=== PATIENT | male | born 1970 | race Caucasian/White ===

== ENCOUNTER 2018-12-13 09:52 | Observation (INO) | payer OTHER ==
[2018-12-13 10:25] LABS: INR 1.03 (0.82-1.09)
[2018-12-13 10:34] LABS: Hematocrit 45 % (42-52); Hemoglobin 15.3 g/dL (14.0-18.0); Mean Corpuscular HGB Conc 34 g/dL (31-36); Mean Corpuscular Hemoglobin 33 pg (27-31); Mean Corpuscular Volume 96 fL (80-94); Mean Platelet Volume 8.2 fL (7.4-10.4); Platelet Count 170 10^3/uL (150-450); Red Blood Count 4.68 10^6 /uL (4.18-5.48); Red Cell Distribution Width 13 % (10-15); White Blood Count 9.4 10^3/uL (3.5-10.8)
[2018-12-13 10:36] LABS: Albumin 4.7 g/dL (3.2-5.2); Albumin/Globulin Ratio 1.6 (1-3); BUN/Creatinine Ratio 15.3 (8-20); EGFR African American 116.4 (>60); EGFR Non-African American 96.2 (>60); Globulin 2.9 g/dL (2-4); Potassium 4.6 mmol/L (3.5-5.0); Total Bilirubin 1.3 mg/dL (0.2-1.0); Total Protein 7.6 g/dL (6.4-8.9)
[2018-12-13 12:03] LABS: ABS Eosinophils 0.1 10^3/ul (0-0.6); ABS Lymphocytes 1.6 10^3/ul (1.0-4.8); ABS Monocytes 0.6 10^3/ul (0-0.8); Eosinophil % 1.3 %; Lymphocyte % 17.3 %
[2018-12-13] MEDS ORDERED: Iohexol 350* (CONTRAST) 500 ML MDV IV ONE (12:08)
--- NOTE | 2018-12-13 12:15 | ED ---
HPI Chest Pain - HPI Summary HPI Summary: Pt is a 48 y/o M presenting to the ED with a chief complaint of L-sided chest wall pain initially onset on the night of 12/10/18 when he was going to sleep. He states he had surgery on December 01, and he experienced some calf cramping after that. He denies calf edema, cough, fever, nausea, diaphoresis, hx of blood clots, drug, or tobacco use. Deep breaths worsen the pain. - History of Current Complaint Chief Complaint: EDChestWallPain Time Seen by Provider: 12/13/18 12:02 Hx Obtained From: Patient Onset/Duration: Started Days Ago, Still Present Timing: Constant, Lasting Days Initial Severity: Mild Current Severity: Mild Pain Intensity: 3 Pain Scale Used: 0-10 Numeric Chest Pain Location: Left Lateral Chest Pain Radiates: No Aggravating Factor(s): Deep Breaths Alleviating Factor(s): Nothing Associated Signs and Symptoms: Positive: Chest Pain, Calf Pain/Swelling - calf cramping, no calf edema. Negative: Fever, Diaphoresis, Nausea, Cough - Allergy/Home Medications Allergies/Adverse Reactions: Allergies Allergy/AdvReac Type Severity Reaction Status Date / Time No Known Allergies Allergy Verified 12/13/18 09:56 Home Medications: Home Medications NK [No Home Medications Reported] 12/13/18 [History Confirmed 12/13/18] PMH/Surg Hx/FS Hx/Imm Hx Previously Healthy: Yes Endocrine/Hematology History: Denies: Hx Blood Disorders Cardiovascular History: Denies: Hx Hypertension Infectious Disease History: No Infectious Disease History: Denies: Traveled Outside the [place] in Last 30 Days - Family History Known Family History: Positive: Hypertension Negative: Cardiac Disease - Social History Alcohol Use: Daily Hx Substance Use: No Substance Use Type: Reports: None Hx Tobacco Use: No Smoking Status (MU): Never Smoked Tobacco Review of Systems Negative: Fever, Skin Diaphoresis Positive: Chest Pain Negative: Cough Negative: Nausea Positive: Myalgia - calf cramping. Negative: Edema All Other Systems Reviewed And Are Negative: Yes Physical Exam - Summary Physical Exam Summary: Constitutional: Well-developed, Well-nourished, Alert. (-) Distressed Skin: Warm, Dry HENT: Normocephalic; Atraumatic Eyes: Conjunctiva normal Neck: Musculoskeletal ROM normal neck. (-) JVD, (-) Stridor, (-) Tracheal deviation Cardio: Rhythm regular, rate normal, Heart sounds normal; Intact distal pulses; The pedal pulses are 2+ and symmetric. Radial pulses are 2+ and symmetric. (-) Murmur Pulmonary/Chest wall: Effort normal. (-) Respiratory distress, (-) Wheezes, (-) Rales Abd: Soft, (-) tenderness, (-) Distension, (-) Guarding, (-) Rebound Musculoskeletal: (-) Edema, no venous cords, no calf tenderness elicited Lymph: (-) Cervical adenopathy Neuro: Alert, Oriented x3 Psych: Mood and affect Normal Triage Information Reviewed: Yes Vital Signs On Initial Exam: Initial Vitals Temp Pulse Resp BP Pulse Ox 97.6 F 77 18 131/98 96 12/13/18 09:53 12/13/18 09:53 12/13/18 09:53 12/13/18 09:53 12/13/18 09:53 Vital Signs Reviewed: Yes Diagnostics - Vital Signs Vital Signs Temp Pulse Resp BP Pulse Ox 12/13/18 11:44 97.6 F 74 18 148/90 95 12/13/18 09:53 97.6 F 77 18 131/98 96 - Laboratory Lab Results: Lab Results 12/13/18 12/13/18 12/13/18 Range/Units 10:05 10:05 10:05 WBC 9.4 (3.5-10.8) 10^3/uL RBC 4.68 (4.18-5.48) 10^6 /uL Hgb 15.3 (14.0-18.0) g/dL Hct 45 (42-52) % MCV 96 H (80-94) fL MCH 33 H (27-31) pg MCHC 34 (31-36) g/dL RDW 13 (10-15) % Plt Count 170 (150-450) 10^3/uL MPV 8.2 (7.4-10.4) fL Neut % (Auto) 74.6 % Lymph % (Auto) 17.3 % Cherry % (Auto) 6.6 % Eos % (Auto) 1.3 % Baso % (Auto) 0.2 % Absolute Neuts (auto) 7.0 (1.5-7.7) 10^3/ul Absolute Lymphs (auto) 1.6 (1.0-4.8) 10^3/ul Absolute Monos (auto) 0.6 (0-0.8) 10^3/ul Absolute Eos (auto) 0.1 (0-0.6) 10^3/ul Absolute Basos (auto) 0.0 (0-0.2) 10^3/ul Absolute Nucleated RBC 0.0 10^3/ul Nucleated RBC % 0.0 INR (Anticoag Therapy) 1.03 (0.82-1.09) D-Dimer, Quantitative > 1050 H (Less Than 230) ng/mL Sodium 139 (135-145) mmol/L Potassium 4.6 (3.5-5.0) mmol/L Chloride 102 (101-111) mmol/L Carbon Dioxide 31 (22-32) mmol/L Anion Gap 6 (2-11) mmol/L BUN 13 (6-24) mg/dL Creatinine 0.85 (0.67-1.17) mg/dL Est GFR ( Amer) 116.4 (>60) Est GFR (Non-Af Amer) 96.2 (>60) BUN/Creatinine Ratio 15.3 (8-20) Glucose 103 H (70-100) mg/dL Calcium 10.0 (8.6-10.3) mg/dL Total Bilirubin 1.30 H (0.2-1.0) mg/dL AST 17 (13-39) U/L ALT 19 (7-52) U/L Alkaline Phosphatase 87 (34-104) U/L Troponin I 0.00 (<0.04) ng/mL Total Protein 7.6 (6.4-8.9) g/dL Albumin 4.7 (3.2-5.2) g/dL Globulin 2.9 (2-4) g/dL Albumin/Globulin Ratio 1.6 (1-3) Result Diagrams: 12/13/18 10:05 12/13/18 10:05 Lab Statement: Any lab studies that have been ordered have been reviewed, and results considered in the medical decision making process. - CT CTA chest/thorax CT Interpretation Completed By: Radiologist Summary of CT Findings: BILATERAL PULMONARY EMBOLI EXTENDING FROM THE MAIN PULMONARY ARTERIES TO THE SEGMENTAL BRANCHES. ED physician has reviewed this report. - EKG 0958 Cardiac Rate: NL - 75bpm EKG Rhythm: Sinus Rhythm ST Segment: Non-Specific Ectopy: None Summary of EKG Findings: EKG at 0958 shows NSR at 75bpm with a prominent S wave in lead I, and T-wave inversion in lead III and aVF. Chest Pain Course/Dx - Course Course Of Treatment: Symptoms in with chest pain to rule out PE. Patient elevated d-dimer and a CT was performed which showed bilateral pleuritic embolus. Patient was normal cardiac, normotensive, not hypoxic, had a normal troponin. Patient had no evidence of submassive or massive PE so he was treated with Lovenox. Patient is admitted to medicine for further management - Diagnoses Provider Diagnoses: Left-sided chest pain, Pulmonary embolism - Provider Notifications Discussed Care Of Patient With: Geovanna Shields Time Discussed With Above Provider: 12:57 Discharge - Sign-Out/Discharge Documenting (check all that apply): Patient Departure - Discharge Plan Condition: Stable Disposition: ADMITTED TO [facility] Referrals: Saran Campbell MD [Primary Care Provider] - - Billing Disposition and Condition Condition: STABLE Disposition: Admitted to [facility] - Attestation Statements Document Initiated by Scribe: Yes Documenting Scribe: Maricruz Weber Provider For Whom Scribe is Documenting (Include Credential): David Gallegos MD. Scribe Attestation: Maricruz Groves, hirened for David Gallegos MD. on 12/13/18 at 1453. Scribe Documentation Reviewed: Yes Provider Attestation: The documentation as recorded by the Maricruz cage accurately reflects the service I personally performed and the decisions made by , David Gallegos MD. Status of Scribe Document: Viewed Consult Consult: [id number] - I spoke with Dr. Shields who will be coming to evaluate the patient for admission.
[2018-12-13] MEDS ORDERED: Enoxaparin(*) 100 MG/ML SYR SUBCUT ONE (12:51)
[2018-12-13] MEDS ORDERED: Ondansetron INJ* 2 MG/ML VIAL IV PRN (14:34)
--- NOTE | 2018-12-13 16:27 | HP ---
History of Present Illness - History of Present Illness Reason for Visit: Left sided chest pain History of Present Illness: This is a 48 y/o M, otherwise healthy presented with complain of: 1. left sided chest pain for 3 days(wednesday)- sudden, on and off, positional( increased by lying down and relived on standing); non-exertional; nonradiating, 8 on 10 and pleuritic(increased on deep breath). No fever, palpitation or difficulty in breathing. 2. Right calf cramping for 1 week- on and off. No swelling, redness or severe pain. History of RIght knee surgery for meniscal repair on 12/01/2018. Taking hydrocodone once daily. 3. Recent travel to [place] on November 21 to with 7 hr flight. ROS: No any cough, headache, weakness, abdominal pain, nausea, vomiting, sense of impending doom, joint pain, rash. Normal bowel and bladder habit. - Past Medical History Past Medical History: No any pertinent past medical history - Past Surgical History Past Surgical History: 1. Right knee meniscal repair on 12/01/2018 2. Eye surgery on November 18. - Past Family History Past Family History: History of HTN on his father. No significant history on mother and his sibling. No family history of thromboembolism. - Past Social History Past Social History: Drinks alcohol- 2 drinks of whiskey everyday for last 3-4 years. No smoking and use of other recreational drug. Review of Systems - Review of Systems Cardiovascular: Positive: Chest Pain Musculoskeletal: Positive: Leg Pain - Medications/Allergies Allergies/Adverse Reactions: Allergies Allergy/AdvReac Type Severity Reaction Status Date / Time No Known Allergies Allergy Verified 12/13/18 09:56 Medications: Current Medications Acetaminophen (Tylenol Tab*) 650 mg PO Q4H PRN PRN Reason: PAIN - MILD Ondansetron HCl (Zofran Inj*) 4 mg IV Q4H PRN PRN Reason: NAUSEA/VOMITING Exam Vital Signs: Vital Signs (72 hours) 12/13/18 12/13/18 12/13/18 09:53 11:44 12:04 Temperature 97.6 F 97.6 F Pulse Rate 77 74 85 Respiratory 18 18 Rate Blood Pressure 131/98 148/90 148/86 (mmHg) O2 Sat by Pulse 96 95 97 Oximetry 12/13/18 12/13/18 12/13/18 12:34 13:00 13:05 Temperature Pulse Rate 85 86 84 Respiratory 18 16 16 Rate Blood Pressure 147/91 130/104 (mmHg) O2 Sat by Pulse 97 95 94 Oximetry 12/13/18 12/13/18 12/13/18 13:34 14:06 14:52 Temperature Pulse Rate 80 117 Respiratory 21 21 Rate Blood Pressure 139/105 137/101 (mmHg) O2 Sat by Pulse 94 79 Oximetry 12/13/18 12/13/18 12/13/18 15:00 15:04 15:34 Temperature Pulse Rate Respiratory 20 17 18 Rate Blood Pressure 133/89 133/89 (mmHg) O2 Sat by Pulse Oximetry 12/13/18 12/13/18 16:00 16:04 Temperature Pulse Rate 72 74 Respiratory 19 19 Rate Blood Pressure 142/86 (mmHg) O2 Sat by Pulse 93 94 Oximetry Exam: Patient is sitting on a bed with no any acute distress. Looks well-nourished. HEENT: Normocepahlic, Atraumatic, Eyes PERRLA. Ear, nose and throat normal Lungs: Normal vesicular breath sound heard all over the lung field. Heart: Normal in rate and rhythm, S1/S2 heard with no any murmur. Abdomen: Soft, nondistended and nontender. Normal bowel sound heard Extremities: Suture in situ on right knee. No any swelling, redness or tenderness. Hnana's sign and Oliverio sign are negative Neuro: Alert, conscious and oriented. CN intact, Moving all four extremities. Assessment/Plan - Assessment/Plan Assessment: 48 y/o M otherwise healthy, with history of recent travel and surgery presented with Left sided pleuritic chest pain for 3 days and hx of right calf cramping for 1 week. Found to have Bilateral pulmonary embolism on CTA with elevated D- dimer. Started on Enoxaparin. EKG shows nonspecific T wave changes on lead III, Troponin negative(2 times). Plan: 1. Switch him to Rivaroxaban 15 mg BID for 21 days. 2. Obtain lower extremity venous doppler to r/o any DVT. 3. Repeat EKG on morning given nonspecific T-wave changes on present EKG.(Also to have a baseline) 4. Er Nurse about his daily alcohol drinking habit. 5. Er Nurse for lifestyle modification given his obesity. Attestation Documenting Resident: Robin Supervising Physician: Jusitn Attending/Supervising Physician Comment: 48 yo M previously healthy with no known PMHx developed subacute chest discomfort and [facility] after recent travel and right knee surgery. On presentation to ED was found with b/l submassive pulmonary embolisms in the absence of hemodynamic instability, hypoxia, tachycardia, elevated troponin and +normal limit BNP. He was started on lovenox for PE in ED which we will change to xarelto tomorrow DVT to assess clot burden. No e/o hemodynamic instability or other diagnostic reason to check TTE which will not influence our management. He did have non specific t wave changes which we will check repeat EKG in AM If stable in AM will be candidate for discharge sPESI score = 0 Attestation: This service has been performed in part by a resident under the direction of a teaching physician.Justin Groves, performed the service, or was physically present during the critical, or [place] portions of the service, furnished by the resident. I participated in the management of the patient.
[2018-12-13] MEDS: Rivaroxaban TAB(*) 15 MG PO SCH (22:37)
[2018-12-13] MEDS: Acetaminophen TAB* 325 MG PO PRN (22:47)
[2018-12-14] MEDS: Rivaroxaban TAB(*) 15 MG PO SCH (08:20)
[2018-12-14] MEDS: Acetaminophen TAB* 325 MG PO PRN (08:22)
[2018-12-14] MEDS ORDERED: traMADol TAB* 50 MG PO ONE (10:35)
[2018-12-14] MEDS ORDERED: predniSONE TAB* 20 MG PO ONE (10:35)
[2018-12-14 11:42] VITALS: BP 127/80
--- NOTE | 2018-12-14 16:44 | DS ---
CC: Dr. Campbell * DATE OF ADMISSION: 12/13/2018. DATE OF DISCHARGE: 12/14/2018. PRIMARY CARE PHYSICIAN: Dr. Campbell. DISPOSITION: To home. CONDITION ON DISCHARGE: Improved. PRIMARY DIAGNOSIS: Bilateral pulmonary embolism associated with right lower extremity deep venous thrombosis. SECONDARY DIAGNOSIS: Chest pain. MEDICATIONS ON DISCHARGE: 1. Rivaroxaban 15 mg twice daily for 20 additional days, after which he will start Rivaroxaban 20 mg daily to take with food. 2. Acetaminophen 650 mg every 4 hours as needed for pain. 3. Tramadol 50 mg every 6 hours, I dispensed 12 tabs. 4. Prednisone 20 mg daily for 4 days. PERTINENT LABORATORY DATA: Troponin I 0.00, BNP 37. PERTINENT IMAGING DATA: 1. CTA chest and thorax: Impression: Bilateral pulmonary emboli extending from the main pulmonary arteries to the segmental branches. 2. Venous Doppler study bilateral lower extremities positive for right lower extremity DVT. Nonocclusive mobile thrombus in the right vein, occlusive thrombosis in one of the paired right posterior tibial veins, and nonocclusive thrombus in one of the paired right peroneal veins. No left lower extremity DVT. HISTORY OF PRESENT ILLNESS AND HOSPITAL COURSE: This 48-year-old male, no known past medical history, was in his usual state of health and developed subacute onset dyspnea on exertion associated with pleuritic chest pain. He presented to the hospital and was found with bilateral pulmonary emboli as indicated above. This was provoked in the setting of recent right knee meniscus repair as well as travel. He was also found to have a right lower extremity DVT lending evidence to surgery as inciting event. He was hemodynamically stable. He had a simplified PESI score of 0. He was started on Lovenox and transitioned to Xarelto. His hospital stay was notable for intense pain when lying flat, much improved when sitting up. This was not relieved with Tylenol. For this, he was prescribed a short course of Tramadol. There was a pleuritic nature to this chest pain and it was thought prudent to avoid nonsteroidal anti-inflammatories in the setting of newly introduced Xarelto. For this reason, he was started on a short course of Prednisone to hopefully alleviate some of the inflammation knowing that this may not be of benefit and the pain may persist until resolution of the thrombus and/or healing of any damage to lungs. Reasons to return to the hospital were discussed at length with the patient and his and they include recurrent or worsening symptoms, including worsening chest pain, shortness of breath, lightheadedness, loss of consciousness or near loss of consciousness, bleeding from any source including dark black stool. AT FOLLOW-UP, PLEASE: 1. Evaluate for improved symptomatology as well as pain. 2. No other specific labs or vitals that need follow-up. TIME SPENT: Greater than 60 minutes were spent on discharge of this patient, greater than half was spent [id number] with the patient. [id number]/[facility] [place] #: [id number] [facility]PITALHugh
== END 2018-12-14 12:44 | disposition home or self-care (01) ==
LOC: ED 09:52 → MEDTELE 14:34
PROVIDERS: ADMIT Internal Medicine; ATTEND Internal Medicine
DX: I26.99 Other pulmonary embolism without acute cor pulmonale (principal); I82.4Z1 Acute embolism and thrombosis of unspecified deep veins of right distal lower extremity; R07.9 Chest pain, unspecified; Z79.899 Other long term (current) drug therapy; R94.31 Abnormal electrocardiogram [ECG] [EKG]
CPT/HCPCS: 36415; 71275; 80053; 83880; 84484; 85025; 85379; 85610; 93005; 93970; 96372; 99284; A9270-GY; G0378; J1650; J7512; Q9967

== ENCOUNTER 2018-12-15 14:12 | Emergency (ER) | payer OTHER ==
[2018-12-15 14:48] LABS: ABS Lymphocytes 1.1 10^3/ul (1.0-4.8); ABS Monocytes 0.5 10^3/ul (0-0.8); ABS Neutrophils 11.5 10^3/ul (1.5-7.7); Eosinophil % 0.2 %; Hematocrit 42 % (42-52); Hemoglobin 14.4 g/dL (14.0-18.0); Mean Corpuscular HGB Conc 35 g/dL (31-36); Mean Corpuscular Hemoglobin 33 pg (27-31); Mean Corpuscular Volume 96 fL (80-94); Nucleated Red Blood Cells % 0.1; Platelet Count 211 10^3/uL (150-450); Red Blood Count 4.34 10^6 /uL (4.18-5.48); Red Cell Distribution Width 13 % (10-15); White Blood Count 13.2 10^3/uL (3.5-10.8)
--- NOTE | 2018-12-15 14:50 | ED ---
HPI Chest Pain - HPI Summary HPI Summary: 48 year old M presenting to [facility] accompanied by parents complains of right- sided chest pain radiating to his right shoulder since this morning. The patient rates the pain 7/10 in severity. Symptoms aggravated by sitting up and lying down. Symptoms alleviated by nothing. Patient states the chest pain started on the left side 5 days ago and has now progressed to the right side. Patient states pain does not worsen with movement. Patient denies shortness of breath. Patient recently traveled and had procedure done on his right knee. Patient was diagnosed with bilateral pulmonary embolisms 2 days ago. Patient was instructed to go to ED if his pain worsened. Patient started taking Xarelto yesterday. - History of Current Complaint Chief Complaint: EDChestWallPain Time Seen by Provider: 12/15/18 14:41 Hx Obtained From: Patient Onset/Duration: Started Hours Ago, Still Present Timing: Constant Current Severity: Moderate Pain Intensity: 7 Pain Scale Used: 0-10 Numeric Chest Pain Radiates: Yes Chest Pain Radiates To:: Shoulder - right Aggravating Factor(s): Other: - sitting up and lying down Alleviating Factor(s): Nothing Associated Signs and Symptoms: Negative: Shortness of Breath - Additional Pertinent History Primary Care Physician: [id number] - Allergy/Home Medications Allergies/Adverse Reactions: Allergies Allergy/AdvReac Type Severity Reaction Status Date / Time No Known Allergies Allergy Verified 12/13/18 09:56 PMH/Surg Hx/FS Hx/Imm Hx Endocrine/Hematology History: Denies: Hx Blood Disorders Cardiovascular History: Denies: Hx Hypertension Respiratory History: Reports: Hx Asthma - exercise induced GI History: Reports: Hx Diverticulosis - 15 years ago Sensory History: Reports: Hx Contacts or Glasses - glasses Denies: Hx Hearing Aid Opthamlomology History: Reports: Hx Contacts or Glasses - glasses - Surgical History Surgery Procedure, Year, and Place: December 01 miniscus right knee. November 18 lasic eye surgery. Vasectomy Hx Anesthesia Reactions: No Infectious Disease History: No Infectious Disease History: Denies: Traveled Outside the [place] in Last 30 Days - Family History Known Family History: Positive: Hypertension Negative: Cardiac Disease - Social History Alcohol Use: Daily Alcohol Amount: 2 glasses of [place] Hx Substance Use: No Substance Use Type: Reports: None Hx Tobacco Use: No Smoking Status (MU): Never Smoked Tobacco Review of Systems Positive: Chest Pain Negative: Shortness Of Breath All Other Systems Reviewed And Are Negative: Yes Physical Exam - Summary Physical Exam Summary: VITAL SIGNS: Reviewed. GENERAL: Patient is a well-developed and nourished MALE who is lying comfortable in the stretcher. Patient is not in any acute respiratory distress. HEAD AND FACE: No signs of trauma. No ecchymosis, hematomas or skull depressions. No sinus tenderness. EYES: PERRLA, EOMI x 2, No injected conjunctiva, no nystagmus. EARS: Hearing grossly intact. Ear canals and tympanic membranes are within normal limits. MOUTH: Oropharynx within normal limits. NECK: Supple, trachea is midline, no adenopathy, no JVD, no carotid bruit, no c- spine tenderness, neck with full ROM. CHEST: Symmetric, no tenderness at palpation. LUNGS: Clear to auscultation bilaterally. No wheezing or crackles. CVS: Regular rate and rhythm, S1 and S2 present, no murmurs or gallops appreciated. ABDOMEN: Soft, non-tender. No signs of distention. No rebound, no guarding, and no masses palpated. Bowel sounds are normal. EXTREMITIES: FROM in all major joints, no edema, no cyanosis or clubbing. NEURO: Alert and oriented x 3. No acute neurological deficits. Speech is normal and follows commands. SKIN: Dry and warm. Triage Information Reviewed: Yes Vital Signs On Initial Exam: Initial Vitals Temp Pulse Resp BP Pulse Ox 97.7 F 82 18 156/80 95 12/15/18 14:22 12/15/18 14:22 12/15/18 14:22 12/15/18 14:22 12/15/18 14:22 Vital Signs Reviewed: Yes Diagnostics - Vital Signs Vital Signs Temp Pulse Resp BP Pulse Ox 12/15/18 14:22 97.7 F 82 18 156/80 95 - Laboratory Result Diagrams: 12/15/18 14:39 12/15/18 14:39 Lab Statement: Any lab studies that have been ordered have been reviewed, and results considered in the medical decision making process. - EKG 1415 Cardiac Rate: NL - 81 BPM EKG Rhythm: Sinus Rhythm EKG Comparison: No Significant Change - similar to prevous 12/13/18 Summary of EKG Findings: sinus rhythm [address] elevations. similar to previous EKG done on 12/13/18 Chest Pain Course/Dx - Course Assessment/Plan: 48 year old M presenting to [facility] accompanied by parents complains of right-sided chest pain radiating to his right shoulder since this morning. The patient rates the pain 7/10 in severity. Symptoms aggravated by sitting up and lying down. Symptoms alleviated by nothing. Patient states the chest pain started on the left side 5 days ago and has now progressed to the right side. Patient states pain does not worsen with movement. Patient denies shortness of breath. Patient recently traveled and had procedures done on his right knee. Patient was diagnosed with bilateral pulmonary embolisms 2 days ago. Patient was instructed to go to ED if his pain worsened. Patient started taking Xarelto yesterday. Blood work without any significant abnormality except the WBCs of 13.2, glucose of 158, and troponin 0.00. I discussed the case with and Dr. Seals from oncology and he reports that the chest pain the patient is experiencing is typical after a PE. He said that the patient would have pleuritic chest pain. The patient is awaiting treatment for a PE therefore he recommends for the patient to be discharged home with follow-up with the primary care physician. In the ED course the patient was given [place] for the pain and his symptoms improved. At this time I discussed my findings and test results with the patient is to follow-up with PCP. The patient understands and agrees. - Diagnoses Provider Diagnoses: Chest pain, Pulmonary embolism - Provider Notifications Discussed Care Of Patient With: Winston Seals Time Discussed With Above Provider: 15:02 Instructed by Provider To: Other - Dr. Seals, oncology, states it is very common to have pleuritic cest pain with PE. Dr. Seals recommends giving pain medication , doing bloodwork, and if everything is normal, then discharge patient home with instructions to continue taking Xarelto and pain medication. Discharge - Sign-Out/Discharge Documenting (check all that apply): Patient Departure - Discharge Patient Received Moderate/Deep Sedation with Procedure: No - Discharge Plan Condition: Stable Disposition: HOME Prescriptions: Hydrocodone/Acetaminophen [[place] 5-325 Tablet] 1 each PO Q6HR PRN #10 tablet MDD 4 tabs PRN Reason: Pain - Mild Patient Education Materials: Chest Pain (ED), Pulmonary Embolism (ED) Referrals: Saran Campbell MD [Primary Care Provider] - 3 Days Additional Instructions: Follow up with your primary care provider in 3 days. Return to the Emergency Department for new or worsening symptoms. - Billing Disposition and Condition Condition: STABLE Disposition: Home - Attestation Statements Document Initiated by Cesar: Yes Documenting Scribe: Trish Hunter Provider For Whom Cesar is Documenting (Include Credential): Satnam Parikh MD Scribe Attestation: ITrish, scribed for Satnam Parikh MD on 12/15/18 at 1838. Scribe Documentation Reviewed: Yes Provider Attestation: The documentation as recorded by the Trish cage accurately reflects the service I personally performed and the decisions made by me, Satnam Parikh MD Status of Scribe Document: Viewed
[2018-12-15 14:53] LABS: INR 1.62 (0.82-1.09)
[2018-12-15] MEDS ORDERED: oxyCODONE/Acetamin 5/325 MG* TAB PO ONE (15:03)
[2018-12-15 15:16] LABS: Albumin 4.4 g/dL (3.2-5.2); Albumin/Globulin Ratio 1.4 (1-3); BUN/Creatinine Ratio 22.6 (8-20); Calcium 9.7 mg/dL (8.6-10.3); EGFR Non-African American 97.5 (>60); Globulin 3.1 g/dL (2-4); Potassium 4.3 mmol/L (3.5-5.0); Total Bilirubin 0.9 mg/dL (0.2-1.0); Total Protein 7.5 g/dL (6.4-8.9)
--- OUTSIDE RECORDS SUMMARY | 2018-12-15 15:27 | XMS REPORT | Summary of Care ---
:1970 Author Organization [facility] Address [address] [facility] [place] [address] Care Team Providers Name Role Phone Saran Campbell MD Primary Care Provider Reason for Visit Reason Comments Rib Pain Pt c/o left lateral rib pain x3 days. 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 Apply externally Gel Multiple Take by mouth. 0 Active Vitamins-Minerals (MULTIVITAMIN MEN PO) CREATINE PO Take by mouth. 0 Active albuterol HFA Take 2 Puffs by 1 Inhaler 3 05/13/2018 Active (VENTOLIN HFA) 108 inhalation EVERY (90 Base) MCG/ACT FOUR HOURS Inhalation Aero Soln NEEDED (exercise asthma symptoms). HYDROcodone-acetamino Take 1-2 Tabs by 16 Tab 0 11/28/2018 Active phen (NORCO) 5-325 MG mouth EVERY SIX Oral Tab HOURS NEEDED (pain). Max Daily Amount: 8 Tabs. HYDROcodone-acetamino Take 1 Tab by mouth 7 Tab 0 12/08/2018 Active phen (NORCO) 5-325 MG EVERY BEDTIME. Max Oral Tab Daily Amount: 1 Tab. documented as of this encounter (statuses as of 12/13/2018) Active Problems Problem Noted Date Current tear of lateral cartilage or meniscus of knee 11/28/2018 History of diverticulitis of colon 01/20/2010 Overview: Hospitalized 1990s documented as of this encounter (statuses as of 12/13/2018) Immunizations Name Administration Dates Next Due Hep A / Hep B Combined Vaccine (Adult) 01/24/2018, 12/20/2017 Influenza (IM) Preservative Free 01/24/2018, 01/13/2017 documented as of this encounter Social History Tobacco Use Types Packs/Day Years Used Date Never Smoker Smokeless Tobacco: Never Used Alcohol Use Drinks/Week oz/Week Comments Yes 3 Standard drinks or equivalent 3.0 Sex Assigned at Date Recorded Not on file Job Start Date Occupation Industry Not on file Not on file Not on file Travel History Travel Start Travel End No recent travel history available. documented as of this encounter Last Filed Vital Signs Vital Sign Reading Time Taken Comments Blood Pressure 122/80 12/13/2018 8:10 AM EDT Pulse 77 12/13/2018 8:42 AM EDT Temperature - - Respiratory Rate - - Oxygen Saturation 95% 12/13/2018 8:42 AM EDT Inhaled Oxygen Concentration - - Weight 95.7 kg (211 lb) 12/13/2018 8:10 AM EDT Height 175.3 cm (5' 9") 12/13/2018 8:10 AM EDT Body Mass Index 31.16 12/13/2018 8:10 AM EDT documented in this encounter Patient Instructions Patient InstructionsCecilia Regan NP - 12/13/2018 8:00 AM EDT I am concerned you may have a pulmonary embolism due to your recent surgery and travel, along with your chest pain. Please go to the ER to be evaluated for this. Your EKG was normal. Pulmonary Embolism WHAT YOU NEED TO KNOW: What is a pulmonary embolism? A pulmonary embolism (PE) is the sudden blockage of a blood vessel inthe lungs by an embolus. An embolus is a small piece of blood clot, fat, air, or tumor cells. The embolus cuts off the blood supply to your lungs. A pulmonary embolism can become life-threatening. What increases my risk for a PE? Obesity Smoking control pills Certain blood diseases, such as thrombophilia and hyperhomocysteinemia Medical conditions, such as a deep venous thrombosis (DVT) or cancer and childbirth Recent surgery Sitting or lying in one position for a long time, such as when you travel by plane What are the signs and symptoms of a PE? Sudden shortness of breath or fast breathing Sudden chest pain that is worse when you take a deep breath Fast heartbeat Fever and coughing up blood Bluish nails Cold, pale, clammy skin Fainting How is a PE diagnosed? Ask your healthcare provider about these and other tests you may need: Blood tests may show signs of the PE or how well your organs are working. An EKG test records your heart rhythm and how fast your heart beats. It is used to check for abnormal heart function. A chest x-ray may show signs of a lung infection or other damage. A CT scan may show the PE. You may be given contrast liquid to help your lungs show up better in the pictures. Tell the healthcare provider if you have ever had an allergic reaction to contrast liquid. A lung scan , or V/Q scan, may show how well blood and oxygen flow in your lungs. A small amount of contrast liquid is used to study your airflow (V) and blood flow (Q). First, you breathe in medical gas. Then, contrast liquid is injected into a vein. Pictures are taken to see how well your lungstake in oxygen. How is a PE treated? Medicines: Clot busters are emergency medicines that work to dissolve blood clots. They cannot be used during or in people with medical conditions that increase their risk of bleeding. Blood thinners help treat the PE and prevent new clots from forming. Examples of blood thinners include heparin, rivaroxaban, apixiban, and warfarin. The following are general safety guidelines to follow while you are taking a blood thinner: Watch for bleeding and bruising. Watch for bleeding from your gums or nose. Watch for blood in your urine and bowel movements. Use a soft washcloth on your skin, and a soft toothbrush to brush your teeth. This can keep your skin and gums from bleeding. If you shave, use an electric shaver. Do notplay contact sports. Tell your dentist and other healthcare providers that you take a blood thinner. Wear a braceletor necklace that says you take this medicine. Do not start or stop any medicines unless your healthcare provider tells you to. Many medicinescannot be used with blood thinners. Tell your healthcare provider right away if you forget to take the blood thinner , or if you take too much. Warfarin is a blood thinner that you may need to take. The following are additional things youshould be aware of if you take warfarin: Foods and medicines can affect the amount of warfarin in your blood. Do not make major changes to your diet. Warfarin works best when you eat about the same amount of vitamin K every day. Vitamin K is found in green leafy vegetables and certain other foods. Ask for more information about what to eat or not to eat. You will need to see your healthcare provider for follow-up visits. You will need regular bloodtests to decide how much warfarin you need. A vena cava filter may be placed inside your vena cava to prevent another PE. The vena cava gerry large vein that brings blood from your lower body up to your heart. The filter traps blood clots and prevents them from going into your lungs. Surgery , called a thrombectomy, may be done to remove the PE. A procedure called thrombolysis may instead be done to inject a clot buster that helps break the clot apart. How can I decrease my risk for another PE? Wear pressure stockings. The stockings are tight and put pressure on your legs. This improves blood flow and helps prevent clots. Wear the stockings during the day. Do not wear them when you sleep. Exercise regularly. Ask about the best exercise plan for you. When you travel by car or work at a desk, take breaks to stand up and move around as much as possible. Rotate your feet in circles often if you sit for a long period of time. Maintain a healthy weight. Ask your healthcare provider how much you should weigh. Ask him to help you create a weight loss plan if you are overweight. Do not smoke. Nicotine and other chemicals in cigarettes and cigars can damage blood vessels and increase your risk for another PE. Ask your healthcare provider for information if you currently smoke and need help to quit. E- cigarettes or smokeless tobacco still contain nicotine. Talk to your healthcare provider before you use these products. Call 911 for any of the following: You feel lightheaded, short of breath, and have chest pain. You cough up blood. You have a seizure. You have slurred speech, increased sleepiness, or problems seeing, talking , or thinking. You have weakness or cannot move your arm or leg on one side of your body. When should I seek immediate care? You feel faint. You have a severe headache. Your heart is beating faster than normal. When should I contact my healthcare provider? The skin on any part of your legs or hips turns purple. Your gums or nose bleed. You see blood in your urine or bowel movements. Your bowel movements are black or darker than normal. You have questions or concerns about your condition or care. CARE AGREEMENT: You have the right to help plan your care. Learn about your health condition and how it may be treated. Discuss treatment options with your caregivers to decide what care you want to receive. You always have the right to refuse treatment. The above information is an parent aide only. It is not intended as medical advice for individual conditions or treatments. Talk to your doctor, nurse or pharmacist before following any medical regimen to see if it is safe and effective for you. 2016 [employer]. Information is for End User's use only and may not be sold, redistributed or otherwise used for commercial purposes. All illustrations and images included in CareNotes are the copyrighted property of [employer] or [employer]. documented in this encounter Progress Notes Cecilia Regan NP - 12/13/2018 8:00 AM EDT PATIENT: Orlin Marie : 1970 DATE OF SERVICE: 12/13/2018 CHIEF COMPLAINT: Chief Complaint Patient presents with Rib Pain Pt c/o left lateral rib pain x3 days. Subjective HISTORY OF PRESENT ILLNESS: Orlin Marie is a 48-y.o. male. Patient with pain in his left rib cage "like a runners stitch that does not go away", started Wednesday night after dinner, noticed when he went to bed and lay down, felt like gas but has not passed. There is one spot of pain he is able to point to, it does not radiate - No pain in arm, back, shoulders, neck or jaw. Standing upright makes pain better, worse when laying down. Movement and coughing does not exacerbate the pain but painful with deep breath. Denies SOB , palpitations, lightheadedness,dizziness. He had surgery on his right knee December 01. 2 weeks before that he had eye surgery. He has also been traveling back and forth to [facility] frequently, last was on 11/25/18. He has had cramps in his right calf since surgery on 12/01, but no swelling that he has noted. History reviewed. No pertinent past medical history. Family History Problem Relation Age of Onset Hypertension Father Diabetes Maternal Grandmother Anesth Problems No family history Arthritis No family history Cancer No family history Clotting Disorder No family history Heart Disease No family history Kidney Disease No family history Thyroid Disease No family history Current Outpatient Medications Medication Sig albuterol HFA (VENTOLIN HFA) 108 (90 Base) MCG/ACT Inhalation Aero Soln Take 2 Puffs by inhalation EVERY FOUR HOURS NEEDED (exercise asthma symptoms ). Clindamycin Phos-Benzoyl Perox (BENZACLIN) 1-5 % Apply externally Gel 1 Appl by Apply externally route EVERY BEDTIME. CREATINE PO Take by mouth. HYDROcodone-acetaminophen (NORCO) 5-325 MG Oral Tab Take 1-2 Tabs by mouth EVERY SIX HOURS ASNEEDED (pain). Max Daily Amount: 8 Tabs. HYDROcodone-acetaminophen (NORCO) 5-325 MG Oral Tab Take 1 Tab by mouth EVERY BEDTIME. Max Daily Amount: 1 Tab. Multiple Vitamins-Minerals (MULTIVITAMIN MEN PO) Take by mouth. No current facility-administered medications for this visit. Allergies Allergen Reactions Adhesive [Tape: Silk Or Adhesive] Rash Social History Socioeconomic History Marital status: Single Spouse name: Not on file Number of children: Not on file Years of education: Not on file Highest education level: Not on file Occupational History Not on file Social Needs Financial resource strain: Not on file Food insecurity: Worry: Not on file Inability: Not on file Transportation needs: Medical: Not on file Non-medical: Not on file Tobacco Use Smoking status: Never Smoker Smokeless tobacco: Never Used Substance and Sexual Activity Alcohol use: Yes Alcohol/week: 3.0 standard drinks Types: 3 Standard drinks or equivalent per week Drug use: No Sexual activity: Not Currently Partners: Male Lifestyle Physical activity: Days per week: Not on file Minutes per session: Not on file Stress: Not on file Relationships Social connections: Talks on phone: Not on file Gets together: Not on file Attends quaker service: Not on file Active member of club or organization: Not on file Attends meetings of clubs or organizations: Not on file Relationship status: Not on file Intimate partner violence: Fear of current or ex partner: Not on file Emotionally abused: Not on file Physically abused: Not on file Forced sexual activity: Not on file Other Topics Concern Back Care Not Asked Bike Helmet Not Asked Blood Transfusions Not Asked Caffeine Concern No Exercise Yes Comment: running and wt lifting Hobby Hazards Not Asked International Travel Not Asked Service Not Asked Occupational Exposure Not Asked Seat Belt Not Asked Self-Exams Not Asked Sleep Concern Not Asked Special Diet No Stress Concern Not Asked Weight Concern Not Asked Social History 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 Respiratory: Negative for cough, hemoptysis and shortness of breath. Pleuritic chest pain left side Cardiovascular: Positive for chest pain (Left side ribs). Negative for palpitations, orthopnea and leg swelling. Cramping in right calf Gastrointestinal: Negative for abdominal pain, nausea and vomiting. Musculoskeletal: Positive for myalgias (right calf cramps). Negative for back pain, joint pain and neck pain. Neurological: Negative for dizziness and headaches. Objective PHYSICAL EXAM: VITALS: BP 122/80 | Pulse 77 | Ht 5' 9" (1.753 m) | Wt 211 lb (95.7 kg) | SpO2 95% | BMI 31.16kg/m Body mass index is 31.16 kg/m. Physical Exam Constitutional: He appears well-developed and well-nourished. Neck: Normal range of motion. Cardiovascular: Normal rate, regular rhythm, normal heart sounds and intact distal pulses. Pulmonary/Chest: Breath sounds normal. No respiratory distress (pain with deep breath left side, seeannotated image). He exhibits no tenderness. Musculoskeletal: Right lower leg: He exhibits no tenderness, no swelling and no edema. Legs: Right leg 40cm Left leg 40 cm PE Wells Score=4.5 (intermediate risk) ASSESSMENT / IMPRESSION: ICD-9-CM ICD-10-CM 1. Pleuritic chest pain 786.52 R07.81 AMBULATORY 12 LEAD EKG (GLOBAL) Patient has recent surgery on his right knee (12/01/18), and recent travel to [place] (11/25/18), along with right calf pain raising concern for pulmonary embolism. Plan 1) EKG was done today 2) Please go to the ER to rule out pulmonary embolism - Report given to [facility]. Author: Cecilia Regan NP 12/13/2018 08:42 documented in this encounter Plan of Treatment Date Type Specialty Care Team Description 12/13/2018 Office Visit Orthopedics Olga Herron RPA-C [address] [place] [address] [phone] Name Type Priority Associated Diagnoses Order Schedule AMBULATORY 12 LEAD EKG EKG Routine Pleuritic chest pain Ordered: 12/13/2018 (GLOBAL) Health Maintenance Due Date Last Done Comments PNEUMOCOCCAL 0-64 YRS (1 of 1 1976 - PPSV23) INFLUENZA VACCINE (#1) 2019 01/24/2018, 01/13/2017 DIABETES SCREENING 01/25/2019 01/25/2018, 01/13/2017, 02/01/2014 DEPRESSION SCREENING 05/13/2019 05/13/2018 LIPID DISORDER SCREENING 01/13/2022 01/13/2017, 02/01/2014 HPV IMMUNIZATION SERIES Aged Out No longer eligible based on patient's age to complete this topic MENINGOCOCCAL VACCINE IMM Aged Out No longer eligible based on patient's age to complete this topic documented as of this encounter Results Not on filedocumented in this encounter Visit Diagnoses Diagnosis Pleuritic chest pain - Primary Painful respiration documented in this encounter Insurance Payer Benefit Plan / Subscriber ID Effective Dates Phone Address Type Group AETNA COMMERCIAL AETNA [facility] xxxxxxxxxx 2012-Present Aetna Guarantor Name Account Type Relation to Date of Phone Billing Patient Address Orlin Marie Personal/Family 1970 [phone] [address] (Home) [address] [place], [place] (Work) [address] documented as of this encounter Advance Directives Type Date Recorded Patient Supervisor Paste Mixing Explanation Advance Directives 03/04/2018 12:53 PM Health Care Proxy
--- OUTSIDE RECORDS SUMMARY | 2018-12-15 15:27 | XMS REPORT | Summary of Care ---
:1970 Author Organization [facility] Address [address] [address] Care Team Providers Name Role Phone Saran Campbell MD Primary Care Provider Reason for Visit Reason Comments Post-op Follow-up r. knee EUA 8.1 Encounter Details Date Type Department Care Team Description 12/15/2018 Office Visit [facility] - Olga Herron, S/P arthroscopy of right knee (Primary Dx); [place] RPA-C Pulmonary embolus and infarction (HCC) [address] [facility] [place] [address] [place] [address] [place] [address] [phone] Allergies Active Allergy Reactions Severity Noted Date Comments Tape: Silk Or Adhesive Rash 11/28/2018 documented as of this encounter (statuses as of 12/15/2018) Medications Medication Sig Dispensed Refills Start Date [...] Inhalation Aero Soln NEEDED (exercise asthma symptoms). HYDROcodone-acetamin Take 1-2 Tabs by 16 Tab 0 11/28/2018 Active ophen (NORCO) 5-325 mouth EVERY SIX MG Oral Tab HOURS NEEDED (pain). Max Daily Amount: 8 Tabs. HYDROcodone-acetamin Take 1 Tab by 7 Tab 0 12/08/2018 Active ophen (NORCO) 5-325 mouth EVERY MG Oral Tab BEDTIME. Max Daily Amount: 1 Tab. prednisoLONE 5 MG Take 4 Tabs by 0 12/14/2018 12/21/2018 Active Oral Tab mouth DAILY. rivaroxaban Take 15 mg by 0 12/14/2018 12/28/2018 Active (XARELTO) 15 MG Oral mouth TWICE DAILY. Tab tramadol (ULTRAM) 50 Take 50 mg by 0 Active MG Oral Tab mouth EVERY SIX HOURS NEEDED (only taking 2 a day for sleep). documented as of this encounter (statuses as of 12/15/2018) Active Problems Problem Noted Date S/P arthroscopy of right knee 12/15/2018 Pulmonary embolus and infarction 12/15/2018 Current tear of lateral cartilage or meniscus of knee 11/28/2018 History of diverticulitis of colon 01/20/2010 Overview: Hospitalized 1990s documented as of this encounter (statuses as of 12/15/2018) Immunizations Name Administration Dates Next Due Hep [...] Sign Reading Time Taken Comments Blood Pressure 137/92 12/15/2018 11:48 AM EDT Pulse - - Temperature - - Respiratory Rate - - Oxygen Saturation - - Inhaled Oxygen Concentration - - Weight 93 kg (205 lb) 12/15/2018 11:48 AM EDT Height 175.3 cm (5' 9") 12/15/2018 11:48 AM EDT Body Mass Index 30.27 12/15/2018 11:48 AM EDT documented in this encounter Progress Notes Olga Herron RPA-C - 12/15/2018 11:45 AM EDT Name: Orlin Marie : 1970 Date of Service: 12/15/2018 CHIEF COMPLAINT: Chief Complaint Patient presents with Post-op Follow-up r. knee EUA 8.1 HPI: Orlin Marie is a 48-y.o. male who presents to the office today for 1st postop s /p right knee arthroscopy that was done by Dr. Dove 12/01/18. Doing ok. Had calf pain and rib pain and was seen in [place]. Had a pulmonary emboli and was kept in the hospital overnight. Now on xarelto. States he did fly the day prior to his surgery. PHYSICAL EXAM: BP 137/92 Ht 5' 9" (1.753 m) Wt 205 lb (93 kg) BMI 30.27 kg/m2 On exam the right knee incisions are healing well. Sutures were removed and steri-strips were applied. He has 0 degree extension and 120 degree of flexion. The calf is soft and non tender to palpation. NV intact to the right lower extremity. He is moving the ankle without difficulty. He is not walking with an antalgic gait. ASSESSMENT: ICD-9-CM ICD-10-CM 1. S/P arthroscopy of right knee V45.89 Z98.890 2. Pulmonary embolus and infarction (HCC) 415.19 I26.99 PLAN: Patient will continue a home exercise program. Patient will follow up in 3 weeks for reevaluation. Will follow with primary care for pulmonary emboli. Author: ELOY Dang 12/15/2018 12:14 documented in this encounter Plan of Treatment Date Type Specialty Care Team Description 12/19/2018 Office Visit Internal Medicine Saran Campbell MD [address] [place] [address] 01/06/2019 Office Visit Orthopedics Tai Dove MD [address] [place] [address] Health Maintenance Due Date Last Done Comments [...] filedocumented in this encounter Visit Diagnoses Diagnosis S/P arthroscopy of right knee - Primary Other postprocedural status Pulmonary embolus and infarction (HCC) Other pulmonary embolism and infarction documented in this encounter Insurance Payer Benefit Plan / Subscriber ID Effective Dates Phone Address Type Group AETNA COMMERCIAL AETNA [facility] xxxxxxxxxx 2012-Present Aetna Guarantor Name Account Type Relation to Date of Phone Billing Patient Address Orlin Marie Personal/Family 1970 [address] [facility] (Home) [address] [place], [place] (Work) [address] documented as of this encounter Advance Directives Type Date Recorded 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
[2018-12-15 17:16] VITALS: BP 127/89
== END 2018-12-15 17:16 | disposition home or self-care (01) ==
LOC: ED 14:12
DX: I26.99 Other pulmonary embolism without acute cor pulmonale (principal)
CPT/HCPCS: 36415; 80053; 82803; 84484; 85025; 85610; 93005; 99284; A9270-GY

== ENCOUNTER 2019-02-16 16:06 | Inpatient (IN) | payer OTHER ==
--- OUTSIDE RECORDS SUMMARY | 2019-02-16 16:27 | XMS REPORT | Summary of Care ---
:1970 Author Organization [facility] Address [address] [address] Care Team Providers Name Role Phone Saran Campbell MD Primary Care Provider Reason for Visit Reason Comments Follow Up S/P right knee EUA 12/01/2018. Patient is doing well. Encounter Details Date Type Department Care Team Description 01/06/2019 Office Visit [facility] - Tai Dove MD S/P arthroscopy of [place] [address] [facility] right knee (Primary [address] [place] [address] [place] [address] [phone] Allergies Active Allergy Reactions Severity Noted Date Comments Tape: Silk Or Adhesive Rash 11/28/2018 documented as of this encounter (statuses as of 01/08/2019) Medications Medication Sig Dispensed Refills Start Date End Date Status Clindamycin 1 Appl by Apply 50 g 2 07/27/2017 Active Phos-Benzoyl externally Perox route EVERY (BENZACLIN) 1-5 BEDTIME. % Apply externally Gel Multiple Take by mouth. 0 Active Vitamins-Mineral s (MULTIVITAMIN MEN PO) albuterol HFA Take 2 Puffs by 1 Inhaler 3 05/13/2018 Active (VENTOLIN HFA) inhalation 108 (90 Base) EVERY FOUR MCG/ACT HOURS NEEDED Inhalation Aero (exercise Soln asthma symptoms). rivaroxaban Take 1 Tab by 90 Tab 3 12/19/2018 Active (XARELTO) 20 MG mouth DAILY. Oral Tab predniSONE Take 20 mg by 0 Discontinued (No (DELTASONE) 20 mouth DAILY. 9 longer clinically MG Oral Tab indicated) documented as of this encounter (statuses as of 01/08/2019) Active Problems Problem Noted Date S/P arthroscopy of right knee 12/15/2018 Pulmonary embolus and infarction 12/15/2018 Current tear of lateral cartilage or meniscus of knee 11/28/2018 History of diverticulitis of colon 01/20/2010 Overview: Hospitalized 1990s documented as of this encounter (statuses as of 01/08/2019) Immunizations Name Administration Dates Next Due Hep [...] Sign Reading Time Taken Comments Blood Pressure 130/80 01/06/2019 8:49 AM EDT Pulse 85 01/06/2019 8:49 AM EDT Temperature - - Respiratory Rate - - Oxygen Saturation - - Inhaled Oxygen Concentration - - Weight 94.3 kg (208 lb) 01/06/2019 8:49 AM EDT Height 175.3 cm (5' 9") 01/06/2019 8:49 AM EDT Body Mass Index 30.72 01/06/2019 8:49 AM EDT documented in this encounter Progress Notes Tai Dove MD - 01/06/2019 8:45 AM EDT Name: Orlin Marie : 1970 Date of Service: 01/06/2019 Chief Complaint Patient presents with Follow Up S/P right knee EUA 12/01/2018. Patient is doing well. SUBJECTIVE: History of Present Illness: Orlin Marie is a 48-y.o. male who presents to the office today approximately 3 weeks status post right knee arthroscopy that was done by myself. He states overall he is doing well. He is without complaints. He denies numbess or tingling in the distal extremity. Says they've been doing range of motion exercises on a routine basis to help improve motion. OBJECTIVE: Physical Examination: BP 130/80 Pulse 85 Ht 5' 9" (1.753 m) Wt 208 lb (94.3 kg) BMI 30.72 kg/m2 The patient's right knee arthroscopy portals are well approximated. There is no erythema, drainage,or signs of infection present. He has minimal swelling. No ecchymosis. He has 0 degrees extension and 120 degrees of flexion. He is neurovascularly intact distally. ASSESSMENT: S/p Medial meniscus tear PLAN: The patient is going to continue with his range of motion excerises. May continue to use ice and non-steroidals as needed for pain. He will follow up with me on prn basis. . Should he have any problems prior to then, he will call and we will address them. Author: Tai Dove MD 01/06/2019 08:55 documented in this encounter Plan of Treatment Date Type Specialty Care Team Description 05/25/2019 Office Visit Internal Medicine Saran Campbell MD [address] [place] [address] [phone] Health Maintenance Due Date Last Done Comments PNEUMOCOCCAL 0-64 YRS (1 of 1976 - PPSV23) INFLUENZA VACCINE (#1) 2019 [...] right knee - Primary Other postprocedural status documented in this encounter Insurance Payer Benefit Plan / Subscriber ID Effective Dates Phone Address Type Group [employer] COMMERCIAL AETNA [facility] xxxxxxxxxx 2012-Present A[employer]na Guarantor Name Account Type Relation to Date of Phone Billing Patient Address Orlin Marie Personal/Family 1970 [phone] [address] (Home) [address] [place], [place] (Work) [address] documented as of this encounter Advance Directives Type Date 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
--- OUTSIDE RECORDS SUMMARY | 2019-02-16 16:27 | XMS REPORT | Summary of Care ---
:1970 Author Organization [facility] Address [address] [address] Care Team Providers Name Role Phone Saran Campbell MD Primary Care Provider Reason for Visit Reason Comments Transitional Care Management Patient was discharged from [facility] on 12/13/2018 after being diagnosed with bilateral pulmonary embolism with right lower extremity DVT. Encounter Details Date Type Department Care Team Description 12/19/2018 Office Visit [place] [facility] Saran Campbell, Bilateral pulmonary embolism (HCC) (Primary Dx); Medicine Acute deep vein thrombosis (DVT) of popliteal vein of right lower extremity ( HCC); [address] History of meniscal tear [place], [place] [id number] [place] [address] [phone] Allergies Active Allergy Reactions Severity Noted Date Comments Tape: Silk Or Adhesive Rash 11/28/2018 documented as of this encounter (statuses as of 12/19/2018) Medications Medication Sig Dispensed Refills Start Date End Date Status Clindamycin 1 Appl by Apply 50 g 2 07/27/2017 Active Phos-Benzoyl externally Perox (BENZACLIN) route EVERY 1-5 % Apply BEDTIME. externally Gel Multiple Take by mouth. 0 Active Vitamins-Minerals (MULTIVITAMIN MEN PO) albuterol HFA Take 2 Puffs by 1 Inhaler 3 05/13/2018 Active (VENTOLIN HFA) inhalation 108 (90 Base) EVERY FOUR MCG/ACT HOURS NEEDED Inhalation Aero (exercise Soln asthma symptoms). predniSONE Take 20 mg by 0 Active (DELTASONE) 20 MG mouth DAILY. Oral Tab rivaroxaban Take 1 Tab by 90 Tab 3 12/19/2018 Active (XARELTO) 20 MG mouth DAILY. Oral Tab CREATINE PO Take by mouth. 0 Discontinued 9 (Provider Discontinued) HYDROcodone-aceta Take 1-2 Tabs 16 Tab 0 11/28/2018 Discontinued minophen (NORCO) by mouth EVERY 9 5-325 MG Oral Tab SIX HOURS NEEDED (pain). Max Daily Amount: 8 Tabs. HYDROcodone-aceta Take 1 Tab by 7 Tab 0 12/08/2018 Discontinued minophen (NORCO) mouth EVERY 9 5-325 MG Oral Tab BEDTIME. Max Daily Amount: 1 Tab. prednisoLONE 5 MG Take 4 Tabs by 0 12/14/2018 Discontinued Oral Tab mouth DAILY. 9 rivaroxaban Take 15 mg by 0 12/14/2018 Discontinued (XARELTO) 15 MG mouth TWICE 9 (Provider Oral Tab DAILY. Discontinued) tramadol (ULTRAM) Take 50 mg by 0 Discontinued 50 MG Oral Tab mouth EVERY SIX 9 HOURS NEEDED (only taking 2 a day for sleep). documented as of this encounter (statuses as of 12/19/2018) Active Problems Problem Noted Date S/P arthroscopy of right knee 12/15/2018 Pulmonary embolus and infarction 12/15/2018 Current tear of lateral cartilage or meniscus of knee 11/28/2018 History of diverticulitis of colon 01/20/2010 Overview: Hospitalized 1990s documented as of this encounter (statuses as of 12/19/2018) Immunizations Name Administration Dates Next Due Hep [...] Sign Reading Time Taken Comments Blood Pressure 112/70 12/19/2018 11:18 AM EDT Pulse 86 12/19/2018 11:18 AM EDT Temperature - - Respiratory Rate - - Oxygen Saturation 95% 12/19/2018 11:18 AM EDT Inhaled Oxygen Concentration - - Weight 94.3 kg (208 lb) 12/19/2018 11:18 AM EDT Height 175.3 cm (5' 9") 12/19/2018 11:18 AM EDT Body Mass Index 30.72 12/19/2018 11:18 AM EDT documented in this encounter Patient Instructions Patient InstructionsSaran Campbell MD - 12/19/2018 11:20 AM EDTxarelto for 6 months Wean off Prednisone Follow up me for pulmonary embolism and deep vein thrombosis 5 months Avoid more than 2-3 hours in a car or airplane documented in this encounter Progress Notes Saran Campbell MD - 12/19/2018 11:20 AM EDT TCM Statement. Review of the hospitalization: I am seeing for transition of care following hospitalization. The date of discharge was: 12/14/18 [facility] The discharge diagnosis was Right popliteal deep vein thrombosis and bilateral Pulmonary embolism He had right knee meniscal tear [facility] the days prior No history of deep vein thrombosis or pulmonary embolism No tobacco use No family history of clotting disroder Treatment with lovenex then xarelto now on 15 mg twice daily Pain treatment with Prednisone and tramadol and hydrocodone the right sided pleuritic pain is now better and he is weaning off Prednisone hydrocodone and tramadol . I reviewed the discharge summary, discharge instructions, and pertinent additional documentation obtained during hospitalization. I reconciled the medications. I also reviewed the Transition of Care documentation done by staff. The tests that were not available at the time of discharge were reviewed. Additional tests which are not yet available include: None Exam BP 112/70 Pulse 86 Ht 5' 9" (1.753 m) Wt 208 lb (94.3 kg) SpO2 95% BMI 30.72 kg/m2 Chest is clear, no wheezing or rales. Normal symmetric air entry throughout both lung le. No chest wall deformities or tenderness. S1 and S2 normal, no murmurs, clicks, gallops or rubs. Regular rate and rhythm. No right calf or popliteal fossa tenderness ICD-9-CM ICD-10-CM 1. Bilateral pulmonary embolism (HCC) xarelto change from 15 mg twice daily To 20 mg daily and take6 months he has two reversible risk factors of recent airline flight and meniscal repair one year rsik of deep vein thrombosis/pe recurrence is 1% or less 415.19 I26.99 2. Acute deep vein thrombosis (DVT) of popliteal vein of right lower extremity ( HCC) 453.41 I82.431 3. History of meniscal tear V13.59 Z87.828 Coordination of care. - I am satisfied that appropriate referrals are in place to deal with the problems identified during hospitalization, and that the patient has adequate community resources and support in place. I confirmed the patient's understanding of the diagnosis and plan of care. Specific education that was provided today: Patient Instructions xarelto for 6 months Wean off Prednisone Follow up me for pulmonary embolism and deep vein thrombosis 5 months Avoid more than 2-3 hours in a car or airplane The current and discharge medications were reconciled by me, today The source document was hospital discharge summary documented in this encounter Plan of Treatment Date Type Specialty Care Team Description 01/06/2019 Office Visit Orthopedics Tai Dove MD [address] [place] [address] [phone] 05/25/2019 Office Visit Internal Medicine Saran Campbell MD [address] [place] [address] [phone] Health Maintenance Due Date Last Done Comments [...] filedocumented in this encounter Visit Diagnoses Diagnosis Bilateral pulmonary embolism (HCC) - Primary Other pulmonary embolism and infarction Acute deep vein thrombosis (DVT) of popliteal vein of right lower extremity ( HCC) History of meniscal tear Personal history of other musculoskeletal disorders documented in this encounter Insurance Payer Benefit Plan / Subscriber ID Effective Dates Phone Address Type Group AETNA COMMERCIAL AETNA [facility] xxxxxxxxxx 2012-Present Aetna Guarantor Name Account Type Relation to Date of Phone Billing Patient Address Orlin Marie Personal/Family 1970 [address] [facility] (Home) [address] [place], [place] (Work) [address] documented as of this encounter Advance Directives 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
[2019-02-16 17:06] LABS: ABS Eosinophils 0.1 10^3/ul (0-0.6); ABS Lymphocytes 1.9 10^3/ul (1.0-4.8); ABS Monocytes 1.2 10^3/ul (0-0.8); ABS Neutrophils 9.2 10^3/ul (1.5-7.7); Hematocrit 40 % (42-52); Hemoglobin 13.8 g/dL (14.0-18.0); Lymphocyte % 15.2 %; Mean Corpuscular HGB Conc 34 g/dL (31-36); Mean Corpuscular Hemoglobin 33 pg (27-31); Mean Corpuscular Volume 96 fL (80-94); Mean Platelet Volume 8.2 fL (7.4-10.4); Platelet Count 222 10^3/uL (150-450); Red Blood Count 4.19 10^6 /uL (4.18-5.48); Red Cell Distribution Width 13 % (10-15); White Blood Count 12.5 10^3/uL (3.5-10.8)
[2019-02-16 17:22] LABS: Albumin/Globulin Ratio 1.3 (1-3); BUN/Creatinine Ratio 13.2 (8-20); Calcium 9.3 mg/dL (8.6-10.3); EGFR African American 107.6 (>60); EGFR Non-African American 88.9 (>60); Globulin 3.2 g/dL (2-4); Potassium 4.2 mmol/L (3.5-5.0); Total Protein 7.2 g/dL (6.4-8.9)
[2019-02-16] MEDS ORDERED: Iohexol 300* (CONTRAST) 10 ML SDV IV ONE (17:57)
[2019-02-16] MEDS ORDERED: Morphine 4 MG/ML VIAL (1 ml) 4 MG/ML VIAL IV ONE (18:04)
[2019-02-16] MEDS ORDERED: NS 0.9% 1000 ML** 2,000 ML IV ONE (18:04)
[2019-02-16] MEDS ORDERED: Ondansetron INJ* 2 MG/ML VIAL IV ONE (18:04)
[2019-02-16 18:11] LABS: Urine Appearance Clear; Urine Bilirubin Negative (Negative); Urine Blood Negative (Negative); Urine Color Yellow; Urine Glucose Negative (Negative); Urine Ketones Negative (Negative); Urine Nitrite Negative (Negative); Urine Protein Negative (Negative); Urine Urobilinogen Negative (Negative)
--- NOTE | 2019-02-16 18:12 | ED ---
Abdominal Pain/Male - HPI Summary HPI Summary: This pt is a 48 y/o male presenting to [facility] from Urgent Care for lower abd pain x6 days. Pt reports his pain is located in his lower abd mostly in the center but notes today he coughed and he had sharp pain on his left side. Pt states his pain is waxing and waning. He notes he has decreased appetite. Denies diarrhea, bloody stools. He denies fever, chills, diaphoresis, back pain , nausea, vomiting, dysuria, hematuria, urinary frequency, testicular pain. Pt notes today he took left over Tramadol (originally prescribed for knee surgery) with moderate relief of pain. Denies erythema of eyes, sore throat, chest pain, SOB, cough, myalgia, edema, rash, or dizziness. PMHx: PE after knee surgery, diverticulitis when he was in his 30's. Patient is currently on 20 mg of Xarelto. Pt admits to drinking whisky daily, 2 regular drinks (2 ounces each) per day. His PCP is Dr. Campbell. - History of Current Complaint Chief Complaint: EDAbdPain Stated Complaint: ABDOMINAL PAIN PER PT Time Seen by Provider: 02/16/19 17:52 Hx Obtained From: Patient Onset/Duration: Lasting Days, Still Present Timing: Lasting Days Severity Currently: Moderate Pain Intensity: 6 Pain Scale Used: 0-10 Numeric Location: Other - lower abdominal Radiates: No Character: Sharp Aggravating Factor(s): Nothing Alleviating Factor(s): Nothing Associated Signs And Symptoms: Positive: Decreased Appetite. Negative: Fever, Cough, Chest Pain, Back Pain, Blood in Stool, Urinary Symptoms, Nausea, Vomiting , Diarrhea, Other - NEGATIVE: hematuria, dysuria, urinary frequency, testicular pain. - Allergies/Home Medications Allergies/Adverse Reactions: Allergies Allergy/AdvReac Type Severity Reaction Status Date / Time No Known Allergies Allergy Verified 02/16/19 16:10 PMH/Surg Hx/FS Hx/Imm Hx Endocrine/Hematology History: Denies: Hx Blood Disorders, Hx Diabetes Cardiovascular History: Denies: Hx Hypertension Respiratory History: Reports: Hx Asthma - exercise induced, Hx Pulmonary Embolism GI History: Reports: Hx Diverticulosis - 15 years ago Sensory History: Reports: Hx Contacts or Glasses - glasses Denies: Hx Hearing Aid Opthamlomology History: Reports: Hx Contacts or Glasses - glasses - Surgical History Surgical History: Yes Surgery Procedure, Year, and Place: December 01 miniscus right knee. November 18 lasic eye surgery. Vasectomy Hx Anesthesia Reactions: No Infectious Disease History: No Infectious Disease History: Denies: Traveled Outside the [place] in Last 30 Days - Family History Known Family History: Positive: Hypertension Negative: Cardiac Disease - Social History Alcohol Use: Daily Alcohol Amount: 2 glasses of [place] Hx Substance Use: No Substance Use Type: Reports: None Hx Tobacco Use: No Smoking Status (MU): Never Smoked Tobacco Review of Systems Constitutional: Other - POSITIVE: decreased appetite Negative: Fever, Chills, Skin Diaphoresis Negative: Erythema Negative: Sore Throat Negative: Chest Pain Negative: Shortness Of Breath, Cough Positive: Abdominal Pain. Negative: Vomiting, Diarrhea, Nausea, Other - NEGATIVE: bloody stools Negative: dysuria, frequency, hematuria, pain Negative: Myalgia, Edema, Other - NEGATIVE: back pain Negative: Rash Neurological: Other - NEGATIVE: dizziness All Other Systems Reviewed And Are Negative: Yes Physical Exam - Summary Physical Exam Summary: Constitutional: Well-developed, Well-nourished, Alert. (-) Distressed Skin: Warm, Dry HENT: Normocephalic; Atraumatic Eyes: Conjunctiva normal Neck: Musculoskeletal ROM normal neck. (-) JVD, (-) Stridor, (-) Tracheal deviation Cardio: Rhythm regular, rate normal, Heart sounds normal; Intact distal pulses; The pedal pulses are 2+ and symmetric. Radial pulses are 2+ and symmetric. (-) Murmur Pulmonary/Chest wall: Effort normal. (-) Respiratory distress, (-) Wheezes, (-) Rales Abd: Soft, left lower quadrant tenderness, (-) Distension, (-) Guarding, (-) Rebound Musculoskeletal: (-) Edema Lymph: (-) Cervical adenopathy Neuro: Alert, Oriented x3 Psych: Mood and affect Normal Triage Information Reviewed: Yes Vital Signs On Initial Exam: Initial Vitals Temp Pulse Resp BP Pulse Ox 97.6 F 68 16 135/90 98 02/16/19 16:08 02/16/19 16:08 02/16/19 16:08 02/16/19 16:08 02/16/19 16:08 Vital Signs Reviewed: Yes Procedures - Sedation Patient Received Moderate/Deep Sedation with Procedure: No Diagnostics - Vital Signs Vital Signs Temp Pulse Resp BP Pulse Ox 02/16/19 17:46 69 98 02/16/19 16:08 97.6 F 68 16 135/90 98 - Laboratory Lab Results: Lab Results 02/16/19 02/16/19 Range/Units 16:51 16:51 WBC 12.5 H (3.5-10.8) 10^3/uL RBC 4.19 (4.18-5.48) 10^6 /uL Hgb 13.8 L (14.0-18.0) g/dL Hct 40 L (42-52) % MCV 96 H (80-94) fL MCH 33 H (27-31) pg MCHC 34 (31-36) g/dL RDW 13 (10-15) % Plt Count 222 (150-450) 10^3/uL MPV 8.2 (7.4-10.4) fL Neut % (Auto) 73.8 % Lymph % (Auto) 15.2 % [place] % (Auto) 9.8 % Eos % (Auto) 1.0 % Baso % (Auto) 0.2 % Absolute Neuts (auto) 9.2 H (1.5-7.7) 10^3/ul Absolute Lymphs (auto) 1.9 (1.0-4.8) 10^3/ul Absolute Monos (auto) 1.2 H (0-0.8) 10^3/ul Absolute Eos (auto) 0.1 (0-0.6) 10^3/ul Absolute Basos (auto) 0.0 (0-0.2) 10^3/ul Absolute Nucleated RBC 0.0 10^3/ul Nucleated RBC % 0.0 Sodium 139 (135-145) mmol/L Potassium 4.2 (3.5-5.0) mmol/L Chloride 104 (101-111) mmol/L Carbon Dioxide 29 (22-32) mmol/L Anion Gap 6 (2-11) mmol/L BUN 12 (6-24) mg/dL Creatinine 0.91 (0.67-1.17) mg/dL Est GFR ( Amer) 107.6 (>60) Est GFR (Non-Af Amer) 88.9 (>60) BUN/Creatinine Ratio 13.2 (8-20) Glucose 90 (70-100) mg/dL Calcium 9.3 (8.6-10.3) mg/dL Total Bilirubin 1.00 (0.2-1.0) mg/dL AST 15 (13-39) U/L ALT 22 (7-52) U/L Alkaline Phosphatase 69 (34-104) U/L Total Protein 7.2 (6.4-8.9) g/dL Albumin 4.0 (3.2-5.2) g/dL Globulin 3.2 (2-4) g/dL Albumin/Globulin Ratio 1.3 (1-3) Lipase 21 (11.0-82.0) U/L Result Diagrams: 02/16/19 16:51 02/16/19 16:51 Lab Statement: Any lab studies that have been ordered have been reviewed, and results considered in the medical decision making process. Abdominal Pain Male Course/Dx - Course Assessment/Plan: Pt is a 48 y/o male, with hx of diverticulitis, presenting to [facility] from Urgent Care for lower abd pain x6 days. Pt reports his pain is located in his lower abd mostly in the center but notes today he coughed and he had sharp pain on his left side. Pt states his pain is waxing and waning. He notes he has decreased appetite. Denies diarrhea, bloody stools. He denies fever , chills, diaphoresis, back pain, nausea, vomiting, dysuria, hematuria, urinary frequency, testicular pain. Pt notes today he took left over Tramadol ( originally prescribed for knee surgery) with moderate relief of pain. On exam patient has left lower quadrant tenderness. Lab results only remarkable for WBC of 12.5. In the ED course the pt was given IV fluids, zofran, morphine. Abdomen/pelvis CT was ordered. Suspicion for diverticulitis, if no abscess pt can likely be discharged. Pt will be signed out to Dr. Price pending CT results and disposition. - Diagnoses Provider Diagnoses: Abdominal pain Discharge ED - Sign-Out/Discharge Documenting (check all that apply): Sign-Out Patient Signing out patient TO: Dianna Price - pending CT and disposition - Discharge Plan Condition: Stable Referrals: Saran Campbell MD [Primary Care Provider] - - Attestation Statements Document Initiated by Scribe: Yes Documenting Scribe: Susie Greer Provider For Whom Scribe is Documenting (Include Credential): Yeison Lindo MD Scribe Attestation: I, Susie Greer, scribed for Yeison Lindo MD on 02/16/19 at 1848. Status of Scribe Document: Ready
--- NOTE | 2019-02-16 19:20 | ED ---
Progress - Progress Note Progress Note: The patient was signed out from Dr. Lindo upon shift change on 02/16/19 at 19: 00, awaiting CT Abd/Pel and pending disposition. CT Abd/Pel shows, per radiologist: Acute sigmoid diverticulitis with a contained perforation. ED physician has reviewed this report. Course/Dx - Course Course Of Treatment: The patient was signed out from Dr. Lindo upon shift change on 02/16/19 at 19:00, awaiting CT Abd/Pel and pending disposition. CT Abd/Pel shows, per radiologist: Acute sigmoid diverticulitis with a contained perforation. Spoke with Dr. Gallagher, surgery, who ecommends admission to hospitalist. Dr. Jeong, hospitalist, agrees to admit patient. Will give the patient Cipro and Flagyl. The patient will be admitted to the hospitalist. The patient is agreeable with this plan. - Diagnoses Provider Diagnoses: Diverticulitis of intestine with abscess - Provider Notifications Discussed Care Of Patient With: Ramin Gallagher Time Discussed With Above Provider: 20:45 Instructed by Provider To: Other - Dr. Gallagher, surgery, recommends admission to hospitalist. Dr. Jeong, hospitalist, agrees to admit patient at 20:48. Discharge ED - Sign-Out/Discharge Documenting (check all that apply): Patient Departure - Admit to hospitalist - Discharge Plan Condition: Stable Disposition: ADMITTED TO [facility] - Billing Disposition and Condition Condition: STABLE Disposition: Admitted to [facility] - Attestation Statements Document Initiated by Dinae: Yes Documenting Scribe: Trish Hunter Provider For Whom Cesar is Documenting (Include Credential): Dianna Price MD Scribe Attestation: ITrish, scribed for Dianna Price MD on 02/16/19 at 2319. Scribe Documentation Reviewed: Yes Provider Attestation: The documentation as recorded by the Trish cage accurately reflects the service I personally performed and the decisions made by me, Dianna Price MD Status of Scribe Document: Viewed Procedures - Sedation Patient Received Moderate/Deep Sedation with Procedure: No
[2019-02-16] MEDS ORDERED: Ciprofloxacin 400MG IVPREMIX(* 400 MG/200 ML BAG IVPB ONE (20:50)
[2019-02-16] MEDS ORDERED: metroNIDAZOLE IV 500 MG/100ML* 500 MG/100 ML BAG IVPB ONE (20:50)
[2019-02-16] MEDS ORDERED: Morphine INJ* 2 MG/ML 1 ML SYRINGE (TWO MG - NEW SYRINGE VERSION) IV PRN (22:07)
[2019-02-16] MEDS ORDERED: Lactated Ringers 1000 ML Bag* 1,000 ML IV SCH (23:00)
--- NOTE | 2019-02-17 01:11 | HP ---
HISTORY AND PHYSICAL: DATE OF ADMISSION: 02/16/19 ADMITTING PROVIDER: Meir Jeong MD. PRIMARY CARE PROVIDER: Dr. Campbell. CHIEF COMPLAINT: Abdominal pain. HISTORY OF PRESENT ILLNESS: Orlin Marie is a 48-year-old male with past medical history of recent provoked PE/DVT, currently on Xarelto. He had an episode of diverticulitis in his late 30s that resolved with antibiotic treatment. Since 02/10/19, six days prior to admission, he developed some intermittent abdominal pain. It has been waking him up in the mornings and has been as intense as 12/10. His bowel movements have been normal. He has not had any fevers, chills, nausea, or vomiting. He called his primary care doctor, Dr. Campbell, described the pain and was recommended to call the gastroenterology service, Dr. Rosanne Mclean and Karissa Oseguera, and has an appointment on and was told to seek further evaluation in the emergency room by Dr. Campbell. Here, he had a CT abdomen and pelvis with IV contrast, which demonstrated acute sigmoid diverticulitis with a contained perforation. The ED consulted General Surgery, Dr. Gallagher, who reportedly recommended patient admission by the medicine service and the general surgery team would evaluate the patient in the morning. He has been started on ciprofloxacin and Flagyl. He got 2 L of normal saline bolus in the ED and 4 mg of morphine. He had a leukocytosis of 12.5, but no other SIRS criteria. He has been hemodynamically stable.He had a colonoscopy in his late 30s after he had the episode of diverticulitis and may have had some polyps removed at that time. That was performed in [place], [place]. In the ED he had an episode of fecal incontinence. PAST MEDICAL HISTORY: Provoked PE(bilateral)/DVT(right) developed a few days after right knee meniscus repair and also 7-hour air flight. Discovered on 12/13 PAST SURGICAL HISTORY: He has had LASIK, vasectomy, right knee meniscus repair in December 2018. MEDICATIONS: 1. Xarelto 20 mg daily. 2. Tylenol 650 mg p.o. q.4 hours p.r.n. ALLERGIES: No known drug allergies. FAMILY HISTORY: His father is alive with hypertension at age 84. Mother alive and healthy at age 71. Sister is alive and healthy at age 51. Two daughters are healthy, aged 22 and 25. SOCIAL HISTORY: The patient is a never smoker. He drinks 2 drinks of whiskey each day for the last 3 or 4 years. Denies ever having alcohol withdrawal symptoms or seizures or other complications. No drug use. He works at [employer] His medical surrogate is his partner, Cecilia Meneses. He desires to be a full code. REVIEW OF SYSTEMS: A complete 14-point review of systems was negative, except as per HPI. He has had some poor sleep with the pain and some headaches. No hematochezia or melena. PHYSICAL EXAMINATION GENERAL APPEARANCE: In no acute distress, standing at the side of bed. VITAL SIGNS: Temperature 97.6, heart rate 68, satting 98% on room air, blood pressure 135/90. HEENT: Normocephalic, atraumatic. Pupils are equal, round, and reactive to light. Extraocular motions are intact. No scleral icterus. NECK: Supple. LUNGS: Clear to auscultation bilaterally with no wheezing, rales, or rhonchi. CARDIOVASCULAR: Regular rate and rhythm. No murmurs, rubs, or gallops. ABDOMEN: Soft, nondistended. Some tenderness in the suprapubic and left lower quadrants that is mild and sharper tenderness and spasticity in the left upper quadrant. No rebound or guarding and no Penn sign. EXTREMITIES: Warm, well perfused. Trace peripheral edema. NEUROLOGIC: Alert and oriented x4. Moving all extremities. Cranial nerves are grossly intact. SKIN: No lesions or rashes. DIAGNOSTIC STUDIES/LAB DATA: Labs: White count 2.5, hemoglobin 13.8, hematocrit 40, platelets 222. Sodium 139, potassium 4.2, chloride 104, carbon dioxide 29, BUN 12, creatinine 0.91, glucose 90, calcium 9.3. Total bili 1.0, AST 15, ALT 22, alk phos 69, albumin 4.0, lipase 21. Urinalysis within normal limits. Imaging: CT abdomen and pelvis with IV contrast showed acute sigmoid diverticulitis with contained perforation. ASSESSMENT AND PLAN: Orlin Marie is a 48-year-old gentleman with history of recent provoked pulmonary embolism/DVT, currently on Eliquis, presenting about 10 years ago with an episode of uncomplicated diverticulitis. He presents with 6 days of abdominal pain and CT findings of acute sigmoid diverticulitis with contained perforation. He is being admitted to observation status and will be evaluated by general surgery team tomorrow. Continue his Cipro 400 mg q.12 hours and Flagyl 500 mg q.8 hours IV. Repeat labs in the morning. Only systemic inflammatory response syndrome criteria is his leukocytosis. He is nontoxic appearing. We will hold his Xarelto for now and put him n.p.o. at midnight (with clear liquids until then) Continue with maintenance IV fluids. His RCRI is 0 and he is at low risk for any surgical complications. He is medically cleared if he would need a surgery, though may need to wait another day or two for his Xarelto to wash out. Low threshold to consider WAM protocol if he starts to develop such symptoms, but he denies any history of alcohol withdrawal. His last dose of Xarelto was day of admission in the AM. If there is no surgery planned, we would restart tomorrow for DVT prophylaxis. I will also put him on SCDs tonight. His medical surrogate is his partner Cecilia Meneses. [id number]/[facility] #: [id number] MTDHugh
[2019-02-17] MEDS: metroNIDAZOLE IV 500 MG/100ML* 500 MG/100 ML BAG IVPB SCH ×3 (04:22→21:05)
[2019-02-17 05:21] LABS: ABS Eosinophils 0.1 10^3/ul (0-0.6); ABS Lymphocytes 1.2 10^3/ul (1.0-4.8); ABS Monocytes 1.2 10^3/ul (0-0.8); ABS Neutrophils 8.2 10^3/ul (1.5-7.7); Eosinophil % 1.1 %; Hematocrit 39 % (42-52); Hemoglobin 13.2 g/dL (14.0-18.0); Lymphocyte % 10.8 %; Mean Corpuscular HGB Conc 34 g/dL (31-36); Mean Corpuscular Hemoglobin 33 pg (27-31); Mean Corpuscular Volume 97 fL (80-94); Mean Platelet Volume 8.3 fL (7.4-10.4); Platelet Count 186 10^3/uL (150-450); Red Blood Count 4.03 10^6 /uL (4.18-5.48); Red Cell Distribution Width 13 % (10-15); White Blood Count 10.7 10^3/uL (3.5-10.8)
[2019-02-17 05:41] LABS: BUN/Creatinine Ratio 10.6 (8-20); Calcium 8.5 mg/dL (8.6-10.3); EGFR African American 116.4 (>60); EGFR Non-African American 96.2 (>60); Potassium 3.9 mmol/L (3.5-5.0)
--- NOTE | 2019-02-17 07:43 | PN ---
Subjective Date of Service: 02/17/19 Interval History: HD 2 on 02/17 48 y/o M with h/o Diverticulitis and recent Provoked DVT/PE on xarelto presented with intermittent abdominla pain without fever. found to have acute diverticulitis with contained perforation. On cipro and flagyl No acute overnight events. VS stable Patient does not have abdominal pain or nausea or vomiting. He had 2 BM this morning;loose stool Objective Active Medications: Acetaminophen (Tylenol Tab*) 650 mg PO Q6H PRN PRN Reason: PAIN-MILD/TEMP >/= 100.4 Metronidazole/Sodium Chloride (Flagyl 500 Mg Ivpb*) 500 mg in 100 mls @ 100 mls /hr IVPB Q8H ASHWIN Last Admin: 02/17/19 04:22 Dose: 100 mls/hr Ciprofloxacin/Dextrose (Cipro 400 Mg Ivpremix(*)) 400 mg in 200 mls @ 200 mls/ hr IVPB Q12H ASHWIN; Protocol Lactated Ringer's (Lactated Ringers 1000 Ml Bag*) 1,000 mls @ 100 mls/hr IV PER RATE [facility] Stop: 02/17/19 08:59 Last Admin: 02/16/19 22:54 Dose: 100 mls/hr Influenza Virus Vaccine (Fluarix Quad [id number] Syr) 0.5 ml IM .ONCE ONE Stop: 02/17/19 09:01 Morphine Sulfate (Morphine Inj (Syringe))*) 2 mg IV Q2H PRN PRN Reason: PAIN - SEVERE Last Admin: 02/16/19 23:43 Dose: 2 mg Vital Signs - 8 hr 02/16/19 02/17/19 02/17/19 23:43 00:53 03:38 Temperature 98.5 F Pulse Rate 75 Respiratory 16 16 16 Rate Blood Pressure 130/72 (mmHg) O2 Sat by Pulse 95 Oximetry 02/17/19 07:35 Temperature 99.4 F Pulse Rate 84 Respiratory 17 Rate Blood Pressure 125/66 (mmHg) O2 Sat by Pulse 96 Oximetry Oxygen Devices in Use Now: None Exam: Patient is sitting on a bed with no acute distress. HEENT: Normocephalic and atraumatic Lungs: Clear with no added sound Heart: S1/S2 heard with no murmur Abdomen: Soft, nondistended and nontender. Extremities: No swelling Neuro: Alert, oriented and conscious Result Diagrams: 10/18/19 05:11 02/17/19 05:11 Additional Lab and Data: Lab Results 02/16/19 02/16/19 Range/Units 16:51 16:51 WBC 12.5 H (3.5-10.8) 10^3/uL RBC 4.19 (4.18-5.48) 10^6 /uL Hgb 13.8 L (14.0-18.0) g/dL Hct 40 L (42-52) % MCV 96 H (80-94) fL MCH 33 H (27-31) pg MCHC 34 (31-36) g/dL RDW 13 (10-15) % Plt Count 222 (150-450) 10^3/uL MPV 8.2 (7.4-10.4) fL Neut % (Auto) 73.8 % Lymph % (Auto) 15.2 % Arthur % (Auto) 9.8 % Eos % (Auto) 1.0 % Baso % (Auto) 0.2 % Absolute Neuts (auto) 9.2 H (1.5-7.7) 10^3/ul Absolute Lymphs (auto) 1.9 (1.0-4.8) 10^3/ul Absolute Monos (auto) 1.2 H (0-0.8) 10^3/ul Absolute Eos (auto) 0.1 (0-0.6) 10^3/ul Absolute Basos (auto) 0.0 (0-0.2) 10^3/ul Absolute Nucleated RBC 0.0 10^3/ul Nucleated RBC % 0.0 Sodium 139 (135-145) mmol/L Potassium 4.2 (3.5-5.0) mmol/L Chloride 104 (101-111) mmol/L Carbon Dioxide 29 (22-32) mmol/L Anion Gap 6 (2-11) mmol/L BUN 12 (6-24) mg/dL Creatinine 0.91 (0.67-1.17) mg/dL Est GFR ( Amer) 107.6 (>60) Est GFR (Non-Af Amer) 88.9 (>60) BUN/Creatinine Ratio 13.2 (8-20) Glucose 90 (70-100) mg/dL Calcium 9.3 (8.6-10.3) mg/dL Total Bilirubin 1.00 (0.2-1.0) mg/dL AST 15 (13-39) U/L ALT 22 (7-52) U/L Alkaline Phosphatase 69 (34-104) U/L Total Protein 7.2 (6.4-8.9) g/dL Albumin 4.0 (3.2-5.2) g/dL Globulin 3.2 (2-4) g/dL Albumin/Globulin Ratio 1.3 (1-3) Lipase 21 (11.0-82.0) U/L Assess/Plan/Problems-Billing Assessment: 48 y/o M with h/o Diverticulitis and recent Provoked DVT/PE on xarelto presented with intermittent abdominla pain without fever. found to have acute diverticulitis with contained perforation. On cipro and flagyl(day 1 on 02/17) - Patient Problems (1) Diverticulitis of colon with perforation Current Visit: Yes Status: Acute Code(s): K57.20 - DVTRCLI OF LG INT W PERFORATION AND ABSCESS W/O BLEEDING SNOMED Code(s): 00498163 Comment: -Had intermittent abdominal pain on presentation - No pain at present; 2 BM this morning -CT abdomen/pelvis- acute sigmoid diverticulitis with contained perforation -Surgery aware -COnservative tx for now- may need surgery depending on symptoms -On cipro and flagyl(day 1 on 02/17) (2) Pulmonary embolism Current Visit: Yes Status: Acute Code(s): I26.99 - OTHER PULMONARY EMBOLISM WITHOUT ACUTE COR PULMONALE SNOMED Code(s): 98182934 Comment: -has recent history of provoked DVT/PE on december. -was on xarelto -we will stop xarelto -switched him to lovenox BID as it will be easy to hold it if he needs surgery (3) DVT prophylaxis Current Visit: Yes Status: Acute Code(s): Z29.9 - ENCOUNTER FOR PROPHYLACTIC MEASURES, UNSPECIFIED SNOMED Code(s): 818374307 Comment: -On lovenox (4) Full code status Current Visit: Yes Status: Acute Code(s): Z78.9 - OTHER SPECIFIED HEALTH STATUS SNOMED Code(s): 806915357 Status and Disposition: Inpatient; surgery following Attending: Jose Cotter Attestation Documenting Resident: Andres Sanders Supervising Physician: Ramin Cotter Attestation: This service has been performed in part by a resident under the direction of a teaching physician.I, Ramin Cotter, performed the service, or was physically present during the critical, or [place] portions of the service, furnished by the resident. I participated in the management of the patient.
--- NOTE | 2019-02-17 08:46 | CONSULT ---
Consult Consult: Consultation: General Surgery Diagnosis: Diverticulitis Chief Complaint: LLQ Abdominal Pain HPI: 48 yo male presented with 6 day hx of abdominal pain worsening to the need to go to the ED. He reports a hx of one previous case of diverticulitis about 10 years ago which was treated conservitively with IV ABX and a 3 day stay in the hospital. He reports that the pain this time is worse. He is comfortable during my exam C/O 2/10 pain more in back from being uncomfortable in the hospital bed. He denies fever/chills/nausea/vomiting, reports + flatus and incontinence of stool x 2 since admit. He does C/O a headache. He is on Xarelto for tx of a R DVT with B/L PE's after a R knee meniscus repair 12/01/18 with PE's dx'd on 12/10/18. last dose xarelto yesterday morning. PMH: Diverticulitis PSH: Right knee scope/meniscal repair, Lasik, Vasectomy SOCIAL: TOB denies ETOH 2 per day DRUGS denies FAMILY HISTORY: Father alive, 83 HTN, Mother alive, 71, healthy ALLERGIES: NKDA MEDICATIONS: Xarelto ROS: A 14 point ROS Negative except per HPI PHYSICAL EXAM: A healthy appearing 48 yo male comfortable in hospital bed, in NAD VS: Vital Signs Temp Pulse Resp BP Pulse Ox 99.4 F 84 18 125/66 96 02/17/19 07:35 02/17/19 07:35 02/17/19 08:20 02/17/19 07:35 02/17/19 07:35 HEENT: NCAT, EOMI, trachea midline, neck supple CHEST: CTA CVS: RRR ABD: Soft, ^^ tender LLQ, hypo BS's M/S: FROM all extremities NEURO:CN's grosssly nl PSYCH: AxO x 3 LABS: Laboratory Results - last 24 hr 02/16/19 02/16/19 02/16/19 16:51 16:51 17:56 WBC 12.5 H RBC 4.19 Hgb 13.8 L Hct 40 L MCV 96 H MCH 33 H MCHC 34 RDW 13 Plt Count 222 MPV 8.2 Neut % (Auto) 73.8 Lymph % (Auto) 15.2 [place] % (Auto) 9.8 Eos % (Auto) 1.0 Baso % (Auto) 0.2 Absolute Neuts (auto) 9.2 H Absolute Lymphs (auto) 1.9 Absolute Monos (auto) 1.2 H Absolute Eos (auto) 0.1 Absolute Basos (auto) 0.0 Absolute Nucleated RBC 0.0 Nucleated RBC % 0.0 Sodium 139 Potassium 4.2 Chloride 104 Carbon Dioxide 29 Anion Gap 6 BUN 12 Creatinine 0.91 Est GFR ( Amer) 107.6 Est GFR (Non-Af Amer) 88.9 BUN/Creatinine Ratio 13.2 Glucose 90 Calcium 9.3 Total Bilirubin 1.00 AST 15 ALT 22 Alkaline Phosphatase 69 Total Protein 7.2 Albumin 4.0 Globulin 3.2 Albumin/Globulin Ratio 1.3 Lipase 21 Urine Color Yellow Urine Appearance Clear Urine pH 6.0 Ur Specific [place] 1.010 Urine Protein Negative Urine Ketones Negative Urine Blood Negative Urine Nitrate Negative Urine Bilirubin Negative Urine Urobilinogen Negative Ur Leukocyte Esterase Negative Urine Glucose Negative 02/17/19 02/17/19 05:11 05:11 WBC 10.7 RBC 4.03 L Hgb 13.2 L Hct 39 L MCV 97 H MCH 33 H MCHC 34 RDW 13 Plt Count 186 MPV 8.3 Neut % (Auto) 76.5 Lymph % (Auto) 10.8 [place] % (Auto) 11.2 Eos % (Auto) 1.1 Baso % (Auto) 0.4 Absolute Neuts (auto) 8.2 H Absolute Lymphs (auto) 1.2 Absolute Monos (auto) 1.2 H Absolute Eos (auto) 0.1 Absolute Basos (auto) 0.0 Absolute Nucleated RBC 0.0 Nucleated RBC % 0.0 Sodium 138 Potassium 3.9 Chloride 105 Carbon Dioxide 25 Anion Gap 8 BUN 9 Creatinine 0.85 Est GFR ( Amer) 116.4 Est GFR (Non-Af Amer) 96.2 BUN/Creatinine Ratio 10.6 Glucose 96 Calcium 8.5 L Total Bilirubin AST ALT Alkaline Phosphatase Total Protein Albumin Globulin Albumin/Globulin Ratio Lipase Urine Color Urine Appearance Urine pH Ur Specific [place] Urine Protein Urine Ketones Urine Blood Urine Nitrate Urine Bilirubin Urine Urobilinogen Ur Leukocyte Esterase Urine Glucose RESULTS: CT: Impression: Acute sigmoid diverticulitis with contained perforation ASSESSMENT: 48 yo male with the above history, admitted with acute diverticulitis PLAN: Conservative non operative management with Observation, IVF's, IV ABX, NPO , follow labs, hold Xarelto for now Above related to Dr Castillo Addendum: After D/W Dr Castillo, no current plans for the OR and due to the recent DVT/PE's(December 2018) patient needs to be anticoagulated, either with Xarelto or Heparin/Lovenox. Anticoagulation was D/W Radu Santiago and Tommy. Also ok for clear liquid diet.
[2019-02-17] MEDS ORDERED: Influenza VAC *QUAD* 2019-20* 0.5 ML SYRINGE IM ONE (09:00)
[2019-02-17] MEDS: Acetaminophen TAB* 325 MG PO PRN (09:14)
[2019-02-17] MEDS: Ciprofloxacin 400MG IVPREMIX(* 400 MG/200 ML BAG IVPB SCH ×2 (10:10→22:27)
[2019-02-17] MEDS: Enoxaparin(*) 100 MG/ML SYR SUBCUT SCH (13:10)
[2019-02-18] MEDS: Enoxaparin(*) 100 MG/ML SYR SUBCUT SCH ×3 (00:07→23:56)
[2019-02-18 05:33] LABS: ABS Eosinophils 0.1 10^3/ul (0-0.6); ABS Lymphocytes 1.5 10^3/ul (1.0-4.8); ABS Monocytes 1.1 10^3/ul (0-0.8); Eosinophil % 0.9 %; Hematocrit 37 % (42-52); Hemoglobin 12.8 g/dL (14.0-18.0); Lymphocyte % 13.9 %; Mean Corpuscular HGB Conc 34 g/dL (31-36); Mean Corpuscular Hemoglobin 33 pg (27-31); Mean Corpuscular Volume 95 fL (80-94); Mean Platelet Volume 7.8 fL (7.4-10.4); Platelet Count 195 10^3/uL (150-450); Red Blood Count 3.93 10^6 /uL (4.18-5.48); Red Cell Distribution Width 12 % (10-15); White Blood Count 10.7 10^3/uL (3.5-10.8)
[2019-02-18 06:03] LABS: BUN/Creatinine Ratio 7.3 (8-20); Calcium 8.7 mg/dL (8.6-10.3); EGFR African American 101.2 (>60); EGFR Non-African American 83.6 (>60); Potassium 3.8 mmol/L (3.5-5.0)
[2019-02-18] MEDS: metroNIDAZOLE IV 500 MG/100ML* 500 MG/100 ML BAG IVPB SCH ×3 (06:03→21:22)
--- NOTE | 2019-02-18 06:44 | PN ---
Subjective Date of Service: 02/18/19 Interval History: HD 3 on 02/18 48 y/o M with h/o Diverticulitis and recent Provoked DVT/PE on xarelto presented with intermittent abdominal pain without fever. Found to have acute diverticulitis with contained perforation. On cipro and flagyl (day 2 on 02/18) No acute overnight events. VS stable Mild abd pain; improving He had several BM yesterday; loose 1 BM movement this morning Objective Active Medications: Acetaminophen (Tylenol Tab*) 650 mg PO Q6H PRN PRN Reason: PAIN-MILD/TEMP >/= 100.4 Last Admin: 02/17/19 09:14 Dose: 650 mg Enoxaparin Sodium (Lovenox(*)) 90 mg SUBCUT Q12H ASHWIN Last Admin: 02/18/19 00:07 Dose: 90 mg Metronidazole/Sodium Chloride (Flagyl 500 Mg Ivpb*) 500 mg in 100 mls @ 100 mls /hr IVPB Q8H ASHWIN Last Admin: 02/18/19 06:03 Dose: 100 mls/hr Ciprofloxacin/Dextrose (Cipro 400 Mg Ivpremix(*)) 400 mg in 200 mls @ 200 mls/ hr IVPB Q12H ASHWIN; Protocol Last Admin: 02/17/19 22:27 Dose: 200 mls/hr Morphine Sulfate (Morphine Inj (Syringe))*) 2 mg IV Q2H PRN PRN Reason: PAIN - SEVERE Last Admin: 02/16/19 23:43 Dose: 2 mg Vital Signs - 8 hr 02/17/19 02/18/19 23:14 03:25 Temperature 99.7 F 99 F Pulse Rate 78 79 Respiratory 16 18 Rate Blood Pressure 118/69 121/70 (mmHg) O2 Sat by Pulse 97 95 Oximetry Oxygen Devices in Use Now: None Exam: Patient is sitting on a bed with no acute distress. HEENT: Normocephalic and atraumatic Lungs: Clear with no added sound Heart: S1/S2 heard with no murmur Abdomen: Soft, nondistended and nontender Extremities: No swelling Neuro: Alert, oriented and conscious Result Diagrams: 02/19/19 04:59 02/19/19 04:59 Additional Lab and Data: Lab Results 02/16/19 02/16/19 Range/Units 16:51 16:51 WBC 12.5 H (3.5-10.8) 10^3/uL RBC 4.19 (4.18-5.48) 10^6 /uL Hgb 13.8 L (14.0-18.0) g/dL Hct 40 L (42-52) % MCV 96 H (80-94) fL MCH 33 H (27-31) pg MCHC 34 (31-36) g/dL RDW 13 (10-15) % Plt Count 222 (150-450) 10^3/uL MPV 8.2 (7.4-10.4) fL Neut % (Auto) 73.8 % Lymph % (Auto) 15.2 % [place] % (Auto) 9.8 % Eos % (Auto) 1.0 % Baso % (Auto) 0.2 % Absolute Neuts (auto) 9.2 H (1.5-7.7) 10^3/ul Absolute Lymphs (auto) 1.9 (1.0-4.8) 10^3/ul Absolute Monos (auto) 1.2 H (0-0.8) 10^3/ul Absolute Eos (auto) 0.1 (0-0.6) 10^3/ul Absolute Basos (auto) 0.0 (0-0.2) 10^3/ul Absolute Nucleated RBC 0.0 10^3/ul Nucleated RBC % 0.0 Sodium 139 (135-145) mmol/L Potassium 4.2 (3.5-5.0) mmol/L Chloride 104 (101-111) mmol/L Carbon Dioxide 29 (22-32) mmol/L Anion Gap 6 (2-11) mmol/L BUN 12 (6-24) mg/dL Creatinine 0.91 (0.67-1.17) mg/dL Est GFR ( Amer) 107.6 (>60) Est GFR (Non-Af Amer) 88.9 (>60) BUN/Creatinine Ratio 13.2 (8-20) Glucose 90 (70-100) mg/dL Calcium 9.3 (8.6-10.3) mg/dL Total Bilirubin 1.00 (0.2-1.0) mg/dL AST 15 (13-39) U/L ALT 22 (7-52) U/L Alkaline Phosphatase 69 (34-104) U/L Total Protein 7.2 (6.4-8.9) g/dL Albumin 4.0 (3.2-5.2) g/dL Globulin 3.2 (2-4) g/dL Albumin/Globulin Ratio 1.3 (1-3) Lipase 21 (11.0-82.0) U/L Assess/Plan/Problems-Billing Assessment: 48 y/o M with h/o Diverticulitis and recent Provoked DVT/PE on xarelto presented with intermittent abdominla pain without fever. found to have acute diverticulitis with contained perforation. On cipro and flagyl(day 2 on 02/18) - Patient Problems (1) Diverticulitis of colon with perforation Current Visit: Yes Status: Acute Priority: High Code(s): K57.20 - DVTRCLI OF LG INT W PERFORATION AND ABSCESS W/O BLEEDING SNOMED Code(s): 90410189 Comment: -Had intermittent abdominal pain on presentation -Improving -CT abdomen/pelvis- acute sigmoid diverticulitis with contained perforation -Surgery aware -COnservative tx for now -On cipro and flagyl(day 2 on 02/18); will change into oral tonight or tomorrow. -On clear liquid- may advance to soft diet today dinner (2) Pulmonary embolism Current Visit: Yes Status: Acute Priority: Medium Code(s): I26.99 - OTHER PULMONARY EMBOLISM WITHOUT ACUTE COR PULMONALE SNOMED Code(s): 48255370 Comment: -has recent history of provoked DVT/PE on december. -was on xarelto -we will stop xarelto -switched him to lovenox BID -will switch to xarelto on dc (3) DVT prophylaxis Current Visit: Yes Status: Acute Priority: Medium Code(s): Z29.9 - ENCOUNTER FOR PROPHYLACTIC MEASURES, UNSPECIFIED SNOMED Code(s): 527466789 Comment: -On lovenox (4) Full code status Current Visit: Yes Status: Acute Priority: Low Code(s): Z78.9 - OTHER SPECIFIED HEALTH STATUS SNOMED Code(s): 611677161 Status and Disposition: Inpatient; surgery following needs follow up with GI in 1-2 weeks. Attending: Jose Cotter Attestation Documenting Resident: Andres Sanders Supervising Physician: Ramin Cotter Attestation: This service has been performed in part by a resident under the direction of a teaching physician.I, Ramin Cotter, performed the service, or was physically present during the critical, or [place] portions of the service, furnished by the resident. I participated in the management of the patient.
[2019-02-18] MEDS: Acetaminophen TAB* 325 MG PO PRN ×2 (08:33→21:31)
[2019-02-18] MEDS: Ciprofloxacin 400MG IVPREMIX(* 400 MG/200 ML BAG IVPB SCH ×2 (10:07→22:46)
--- NOTE | 2019-02-18 11:04 | PN ---
Progress Note - Progress Note Date of Service: 02/18/19 Note: Surgery Progress Note S: Patient feels much better today. He is tolerating a CLD. He remains afebrile. He is ambulating and having loose stools. O: Vital Signs: Temp Pulse Resp BP Pulse Ox 98.7 F 76 16 115/67 95 02/18/19 07:37 02/18/19 07:37 02/18/19 08:30 02/18/19 07:37 02/18/19 07:37 Laboratory Results - last 24 hr 02/18/19 02/18/19 05:21 05:21 WBC 10.7 RBC 3.93 L Hgb 12.8 L Hct 37 L MCV 95 H MCH 33 H MCHC 34 RDW 12 Plt Count 195 MPV 7.8 Neut % (Auto) 74.6 Lymph % (Auto) 13.9 Keith % (Auto) 10.2 Eos % (Auto) 0.9 Baso % (Auto) 0.4 Absolute Neuts (auto) 8.0 H Absolute Lymphs (auto) 1.5 Absolute Monos (auto) 1.1 H Absolute Eos (auto) 0.1 Absolute Basos (auto) 0.0 Absolute Nucleated RBC 0.0 Nucleated RBC % 0.0 Sodium 139 Potassium 3.8 Chloride 104 Carbon Dioxide 28 Anion Gap 7 BUN 7 Creatinine 0.96 Est GFR ( Amer) 101.2 Est GFR (Non-Af Amer) 83.6 BUN/Creatinine Ratio 7.3 L Glucose 104 H Calcium 8.7 Intake & Output 02/17/19 02/18/19 02/18/19 22:59 06:59 14:59 Intake Total 1710 360 143 Output Total 1025 200 Balance 685 160 143 Intake: IV Fluids 110 210 33 ABX - FLAGYL 110 NS (0.9%) 33 cipro 210 IVPB 100 110 ABX - FLAGYL 100 110 Oral 1500 150 Output: Urine 1025 200 Other: Estimated Void Large # Voids 2 Physical exam: Abdomen- soft, minimally tender in LLQ, no guarding or rebound A/P: 48 M with acute diverticulitis with evidence of contained perforation on abdominal CT scan, doing very well. - Recommend continuing CLD and advancing to soft either tonight or tomorrow. - Continue antibiotics - Upon discharge patient should follow up with GI for an outpatient colonoscopy after acute inflammation has subsided if he has not had one recently. He can follow up with surgery as an outpatient if he wishes to discuss an elective sigmoidectomy. - Surgery will sign off, please feel free to call with any further questions
[2019-02-19] MEDS: metroNIDAZOLE TAB* 250 MG PO SCH ×4 (04:59→12:15)
[2019-02-19 05:16] LABS: Hematocrit 38 % (42-52); Hemoglobin 12.9 g/dL (14.0-18.0); Mean Corpuscular HGB Conc 34 g/dL (31-36); Mean Corpuscular Hemoglobin 32 pg (27-31); Mean Corpuscular Volume 95 fL (80-94); Mean Platelet Volume 7.9 fL (7.4-10.4); Platelet Count 222 10^3/uL (150-450); Red Blood Count 3.99 10^6 /uL (4.18-5.48); Red Cell Distribution Width 12 % (10-15); White Blood Count 9.8 10^3/uL (3.5-10.8)
[2019-02-19 05:18] LABS: ABS Basophils 0.1 10^3/ul (0-0.2); ABS Eosinophils 0.2 10^3/ul (0-0.6); ABS Lymphocytes 1.9 10^3/ul (1.0-4.8); ABS Monocytes 1.1 10^3/ul (0-0.8); ABS Neutrophils 6.5 10^3/ul (1.5-7.7); Eosinophil % 2.1 %; Lymphocyte % 19.2 %
[2019-02-19 05:35] LABS: BUN/Creatinine Ratio 7.3 (8-20); Calcium 8.8 mg/dL (8.6-10.3); EGFR African American 101.2 (>60); EGFR Non-African American 83.6 (>60); Potassium 3.8 mmol/L (3.5-5.0)
[2019-02-19] MEDS ORDERED: Ciprofloxacin TAB* 500 MG PO SCH (10:00)
[2019-02-19 11:34] VITALS: BP 110/69
[2019-02-19] MEDS: Enoxaparin(*) 100 MG/ML SYR SUBCUT SCH (11:41)
--- NOTE | 2019-02-19 22:26 | DS ---
CC: Dr. Campbell; Dr. Castillo, General Surgery * DISCHARGE SUMMARY: DATE OF ADMISSION: 02/16/19 DATE OF DISCHARGE: 02/19/19 PRIMARY DIAGNOSIS: Sigmoid diverticulitis with contained perforation, no hemorrhage. SECONDARY DIAGNOSES: 1. Obesity. 2. History of pulmonary embolism, diagnosed in December 2018 with right DVT provoked by meniscus repair and 7-hour plane flight. The patient is on long- term anticoagulation. MEDICATIONS ON DISCHARGE: 1. Acetaminophen as needed. 2. Ciprofloxacin 500 mg p.o. q.12 hours for 5 days. 3. Metronidazole 500 mg p.o. t.i.d. for 5 days. 4. Xarelto 20 mg p.o. daily. CONSULTATIONS: Dr. Castillo of Surgery. PROCEDURES: None. HOSPITAL COURSE: Mr. Marie was admitted to the emergency department with diverticulitis, typical left lower quadrant pain and tenderness. Please see the admission history and physical for full details of this medical admission. The patient was admitted to the medical floor and treated with n.p.o., bowel rest, pain control, antiemetics, and ciprofloxacin with Flagyl IV. The patient had a typical course of improving left lower quadrant pain and he began to tolerate clear liquids on day 2 and full soft solids on the day of discharge. The patient was seen by Dr. Castillo of Surgery, who recommended that he have a colonoscopy in six weeks after the inflammation has resolved and be referred to Surgery for consultation regarding sigmoidectomy as this is the second course of diverticulitis in the same area. Because of his recent DVT and PE, he was switched from Xarelto to Lovenox at full dose as we have been contemplating surgery. At the end of the admission when surgery was not indicated, he was switched back on discharge to oral Xarelto. On admission, his white count was 12.5, which fell to 9.8 on discharge. His hemoglobin was 13.8, which fell to 12.9 on discharge. Electrolytes were normal. Liver enzymes and lipase were normal. Urinalysis was negative. CT report from 02/16/19 describes acute sigmoid diverticulitis with contained perforation. No other significant findings. DIET: Should be a bland, soft, solid diet. ACTIVITY: Will be as tolerated. CONDITION: Stable. STATUS: Observation. [id number]/[facility] #: [id number] [facility]
--- NOTE | 2019-03-03 11:07 | DS ---
DISCHARGE SUMMARY: DATE OF ADMISSION: DATE OF DISCHARGE: 02/19/19 ADDENDUM: DISPOSITION: Home. [id number]/[facility] #: [id number] MTDD
== END 2019-02-19 12:35 | disposition home or self-care (01) | DRG 392 ==
LOC: ED 16:06 → SSU 21:30 → OBSVTOIN 02-17 07:41
PROVIDERS: ADMIT Internal Medicine; ATTEND Internal Medicine
DX: K57.20 Diverticulitis of large intestine with perforation and abscess without bleeding (principal); E66.9 Obesity, unspecified; Z68.31 Body mass index [BMI] 31.0-31.9, adult; Z86.711 Personal history of pulmonary embolism; Z79.01 Long term (current) use of anticoagulants; Z86.718 Personal history of other venous thrombosis and embolism; Z79.1 Long term (current) use of non-steroidal anti-inflammatories (NSAID); Z82.49 Family history of ischemic heart disease and other diseases of the circulatory system
CPT/HCPCS: 36415; 74177; 80048; 80053; 81003; 83690; 85025; 90471; 90686; 96365; 96375; 99284; A9270-GY; G0008; J0744; J1650; J2270; J2405; Q9967